=== PATIENT | female | born 1960 ===

== ENCOUNTER 2017-11-24 09:21 | Inpatient (IN) | payer MEDICAID ==
[~2017-11-24] VITALS: Ht 154.9 cm; Wt 76.7 kg
--- NOTE | 2017-11-24 09:35 | PHYS DOC ---
Adult General [facility] HPI Patient is a very pleasant 56-year-old female who presents for evaluation of left-sided chest pain as well as some dizziness and a headache over the last 2- 3 days. She reports that she takes medication for hypertension and that her blood pressure has been elevated at home. She says she takes lisinopril and also simvastatin. She moved here from [place] about a week ago and has not yet been established with a local primary care physician. She smokes cigarettes and rarely drinks alcohol. She takes aspirin daily normally but has not taken any today. She does mention that the left-sided chest pain is radiating to the back and is worse with deep breaths. She says that earlier today she felt like she was going to pass out which concerned her and prompted her visit to the emergency department today. Her blood pressure upon arrival is noted to be quite high at approximately 205/115. She denies history of cardiac events. She states her mother had a h/o strokes and "heart problems that she was born with" but denies other cardiac problems in her other immediate family. Review of Systems Review of Systems Constitutional: Denies fever or chills [] Eyes: Denies change in visual acuity, redness, or eye pain [] HENT: Denies nasal congestion or sore throat [] Respiratory: Denies cough/hemoptysis [] +sob Cardiovascular: No additional information not addressed in HPI [] +cp GI: Denies abdominal pain, nausea, vomiting, bloody stools or diarrhea [] : Denies dysuria or hematuria [] Musculoskeletal: Denies back pain or joint pain [] Integument: Denies rash or skin lesions [] Neurologic: Denies headache, focal weakness or sensory changes [] [place] near- syncope earlier, +[place] Endocrine: Denies polyuria or polydipsia [] All other systems were reviewed and found to be within normal limits, except as documented in this note. Physical Exam Physical Exam Constitutional: Well developed, well nourished, no acute distress, non-toxic appearance. [] calm, appears slightly anxious HENT: Normocephalic, atraumatic, bilateral external ears normal, oropharynx moist, no oral exudates, nose normal. [] Eyes: PERRLA, EOMI, conjunctiva normal, no discharge. [] Neck: Normal range of motion, no tenderness, supple, no stridor. [] Cardiovascular:Heart rate regular rhythm, no murmur [] Lungs & Thorax: Bilateral breath sounds clear to auscultation [] Abdomen: Bowel sounds normal, soft, no tenderness, no masses, no pulsatile masses. [] Skin: Warm, dry, no erythema, no rash. [] Back: No tenderness, no CVA tenderness. [] Extremities: No tenderness, no cyanosis, no clubbing, ROM intact, no edema. [] Neurologic: Alert and oriented X 3, normal motor function, normal sensory function, no focal deficits noted. [] Psychologic: Affect normal, judgement normal, mood normal. [] EKG EKG Normal sinus rhythm, rate of 68, normal axis, no acute ischemic findings, no STEMI, reviewed and interpreted by myself Radiology/Procedures Radiology/Procedures [address] [address] IMAGING REPORT Signed PATIENT: REMIGIO LOVING ACCOUNT: [id number] : 1960 LOCATION: ER AGE: 56 SEX: F EXAM STATUS: PRE ER ORD. PHYSICIAN: LOBO PANDYA DO REASON: headache, dizzy, near syncope, elevated bp PROCEDURE: CT HEAD WO CONTRAST CT HEAD INDICATION: DIZZINESS, HYPERTENSION, NEAR SYNCOPE COMPARISON: None Available. TECHNIQUE: 5 mm contiguous axial images were obtained from the skull base to the vertex in both bone and soft tissue algorithm. Exposure: One or more of the following individualized dose reduction techniques were utilized for this examination: 1. Automated exposure control 2. Adjustment of the mA and/or kV according to patient size 3. Use of iterative reconstruction technique FINDINGS: No abnormal attenuation within the brain parenchyma. No evidence of acute intracranial hemorrhage. No extra-axial fluid collections. No mass effect or midline shift. Ventricular size is appropriate. Basal cisterns are patent. No fractures identified.Espino-white differentiation is preserved.Globes and orbits are within normal limits. Paranasal sinuses and mastoid air cells are clear. IMPRESSION: No acute intracranial findings. Electronically signed by: Johnathan Oliver MD (11/24/2017 10:14 AM) [id number] DICTATED AND SIGNED BY: JOHNATHAN OLIVER MD DATE: 11/24/17 1008 CC: LOBO PANDYA DO ~ [address] [id number] IMAGING REPORT Signed PATIENT: REMIGIO LOVING ACCOUNT: [id number] : 1960 LOCATION: ER AGE: 56 SEX: F EXAM STATUS: PRE ER ORD. PHYSICIAN: LOBO PANDYA DO REASON: cp PROCEDURE: CHEST AP ONLY EXAM: Chest, single view. HISTORY: Chest pain. COMPARISON: None. FINDINGS: A frontal view of the chest is obtained. There is no infiltrate, pleural effusion or pneumothorax. There is left basilar atelectasis. IMPRESSION: No acute pulmonary finding. Electronically signed by: María Donnelly MD (11/24/2017 10:18 AM) [facility] DICTATED AND SIGNED BY: MARÍA DONNELLY MD DATE: 11/24/17 1016 CC: LOBO PANDYA DO ~ Course & Med Decision Making Course & Med Decision Making Pertinent Labs and Imaging studies reviewed. (See chart for details) @0917 - Pt's BP has decreased after the nitro to approx 158/90. She reports the chest pain is improved slightly but her back is still hurting near the left scapula. She appears to be in no distress. Her family has arrived. @1055 - Reviewed the patient's lab and imaging results with the patient and her family. She has not had a stress test in several years. I'm concerned that her blood pressure may have been elevated for some time now and needs to be controlled better. Recommended and offered admission and the patient agrees with this plan. Dr. Perry accepts the telemetry observation admission. Dragon Disclaimer Dragon Disclaimer This electronic medical record was generated, in whole or in part, using a voice recognition dictation system. Departure Departure: Impression: Primary Impression: Chest pain Additional Impressions: Uncontrolled hypertension Noncompliance with medication regimen Disposition: ADMITTED INPATIENT Admitting Physician: Sejal Perry Condition: STABLE Problem Qualifiers LOBO PANDYA DO Nov 24, 2017 09:35
--- NOTE | 2017-11-24 09:35 | EKG ---
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
[2017-11-24] MEDS ORDERED: NITROGLYCERIN SUBLINGUAL 0.4 MG BOTTLE OF 25. SL ONE (10:10)
[2017-11-24] MEDS ORDERED: ASPIRIN 81 MG TAB.CHEW PO ONE (10:10)
[2017-11-24 10:11] LABS: BASO % 1 % (0-3); EOS # 0.2 x10^3/uL (0.0-0.7); EOS % 3 % (0-3); HEMATOCRIT 41.6 % (36.0-47.0); HEMOGLOBIN 14.2 g/dL (12.0-15.5); LYMPH # 2.7 x10^3/uL (1.0-4.8); LYMPH % 43 % (24-48); MEAN CORPUSCULAR HEMOGLOBIN 32 pg (25-35); MEAN CORPUSCULAR HGB CONC 34 g/dL (31-37); MEAN CORPUSCULAR VOLUME 93 fL (79-100); MONO # 0.3 x10^3/uL (0.0-1.1); MONO % 5 % (0-9); NEUT % 49 % (31-73); PLATELET COUNT 229 x10^3/uL (140-400); RED BLOOD COUNT 4.48 x10^6/uL (3.50-5.40); RED CELL DISTRIBUTION WIDTH 13.7 % (11.5-14.5); WHITE BLOOD COUNT 6.2 x10^3/uL (4.0-11.0)
--- NOTE | 2017-11-24 10:18 | RAD ---
CT HEAD INDICATION: DIZZINESS, HYPERTENSION, NEAR SYNCOPE COMPARISON: None Available. TECHNIQUE: 5 mm contiguous axial images were obtained from the skull base to the vertex in both bone and soft tissue algorithm. Exposure: One or more of the following individualized dose reduction techniques were utilized for this examination: 1. Automated exposure control 2. Adjustment of the mA and/or kV according to patient size 3. Use of iterative reconstruction technique FINDINGS: No abnormal attenuation within the brain parenchyma. No evidence of acute intracranial hemorrhage. No extra-axial fluid collections. No mass effect or midline shift. Ventricular size is appropriate. Basal cisterns are patent. No fractures identified.Espino-white differentiation is preserved.Globes and orbits are within normal limits. Paranasal sinuses and mastoid air cells are clear. IMPRESSION: No acute intracranial findings. Electronically signed by: Johnathan Oliver MD (11/24/2017 10:14 AM) [id number]
--- NOTE | 2017-11-24 10:22 | RAD ---
EXAM: Chest, single view. HISTORY: Chest pain. COMPARISON: None. FINDINGS: A frontal view of the chest is obtained. There is no infiltrate, pleural effusion or pneumothorax. There is left basilar atelectasis. IMPRESSION: No acute pulmonary finding. Electronically signed by: María Dickinson MD (11/24/2017 10:18 AM) [place] [id number]
[2017-11-24 10:24] LABS: MAGNESIUM 2.1 mg/dL (1.8-2.4)
[2017-11-24] MEDS ORDERED: MORPHINE SULFATE 4 MG/ML DISP.SYRIN. IV ONE (10:30)
[2017-11-24 10:34] LABS: ALBUMIN 3.8 g/dL (3.4-5.0); ALBUMIN/GLOBULIN RATIO 1.1 (1.0-1.7); ALK PHOS 108 U/L (46-116); ALT (SGPT) 20 U/L (14-59); ANION GAP 9 (6-14); AST (SGOT) 15 U/L (15-37); BLOOD UREA NITROGEN 10 mg/dL (7-20); BUN/CREATININE RATIO 13 (6-20); CALCIUM 8.9 mg/dL (8.5-10.1); CARBON DIOXIDE 27 mmol/L (21-32); CHLORIDE 107 mmol/L (98-107); CREATININE 0.8 mg/dL (0.6-1.0); GFR 74.2; GLUCOSE 80 mg/dL (70-99); POTASSIUM 3.9 mmol/L (3.5-5.1); SODIUM 143 mmol/L (136-145); TOTAL BILIRUBIN 0.3 mg/dL (0.2-1.0); TOTAL PROTEIN 7.2 g/dL (6.4-8.2)
[2017-11-24 11:07] LABS: BACTERIA,URINE FEW /HPF (0-FEW); BILIRUBIN,URINE NEG (NEG); CLARITY,URINE HAZY; COLOR,URINE YELLOW; GLUCOSE,URINE NEG (NEG); NITRITE,URINE NEG (NEG); SQUAMOUS EPITHELIAL CELL,UR FEW /LPF; UROBILINOGEN,URINE 0.2 mg/dL (0.2 mg/dL); WBC,URINE OCC /HPF (0-4)
[2017-11-24 12:07] VITALS: BP 170/77
[2017-11-24] MEDS ORDERED: LISI10TA2 PO (13:53)
[2017-11-24] MEDS ORDERED: LISINOPRIL 10 MG TABLET PO PRN (14:30)
[2017-11-24 15:19] VITALS: BP 129/85
--- NOTE | 2017-11-24 15:32 | HP ---
ADMIT DATE: 11/24/2017 HISTORY OF PRESENT ILLNESS: The patient is a 56-year-old female patient who came to the Emergency Room, complaining of left-sided chest pain as well as some dizziness and headache over the last 2-3 days. She apparently takes her blood pressure medication as needed. She is only on 5 mg of lisinopril and she is not really compliant and does not take her lisinopril and simvastatin on a regular basis. She moved here about from [place] about a week ago and has not yet established with a local primary care physician. She smokes cigarettes and rarely drinks alcohol. She takes aspirin daily normally, but she has not taken any. She has had recurrent episodes of left-sided chest pain that is radiating to the back, worse with taking a deep breath. She actually responded to nitroglycerin at the Emergency Room and again, she another episode of the same pain while in the floor and responded to nitroglycerin and was admitted. She was extensively evaluated in the Emergency Room and was admitted with chest pain to rule out myocardial infarction and uncontrolled hypertension, noncompliance with medication. PAST MEDICAL HISTORY: Significant for hypertension, hyperlipidemia, osteoarthritis and degenerative disk disease. PAST SURGICAL HISTORY: Significant for partial hysterectomy, tonsillectomy, esophagogastroduodenoscopy and colonoscopy. ALLERGIES: She has no known drug allergies. MEDICATIONS: She is currently on following medications: She is on lisinopril 10 mg once a day. She is also on simvastatin. FAMILY HISTORY: She has one sister, younger and is known to have SLE. Two brothers, her younger brother is known to have hypertension. Her father at age of 79 because of ruptured cerebral aneurysm. Mother at the age of 42 because of CVA. SOCIAL HISTORY: She is , has 1 son and 2 daughters. She smokes 3 cigarettes a day. Does not drink alcohol or use any recreational drugs. 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 REVIEW OF SYSTEMS: The patient denied any blurring of vision, cataract, glaucoma or macular degeneration. Denied any earache, tinnitus or sensorineural deafness. Denied any nosebleeds, stuffy nose or postnasal drip. Denied any sore throat, sore tongue, toothache, hoarseness of voice or difficulty swallowing. Denied any nausea, vomiting, diarrhea or constipation. Denied any hematemesis, melena or hematochezia. Denied any dysuria, frequency or hematuria. Did complain of left-sided chest pain that radiates to the back. Denied any nausea or vomiting. Denied any diaphoresis, denied any shortness of breath. Denied any cough, phlegm, or hemoptysis. PHYSICAL EXAMINATION: GENERAL: On examining her, she looked well and was clearly in no apparent respiratory distress. On arrival to the Emergency Room, her heart rate was 71, blood pressure was 203/114. Her temperature was 97.4, respiratory rate was 16 and oxygen saturation was 99%. HEAD, EYES, EARS, NOSE, AND THROAT: Showed normocephalic, atraumatic. NECK: Supple. HEART: Showed normal first and second sounds. No gallop, rub or murmur. CHEST: Clear to auscultation. No crepitation or rhonchi. ABDOMEN: Distended, soft, nontender. NEUROLOGIC: She is awake, alert, responding appropriately. Cranial nerves intact. He moves extremities without difficulty. She ambulates without assistance or assistive devices. LABORATORY DATA: While in the Emergency Room, her white cell count was 6200, hemoglobin 14, hematocrit 42, MCV 93 and platelet count 229,000. Her chemistry showed a serum sodium 143, potassium 3.9, chloride 107, bicarbonate 27, anion gap of 9, BUN 10, creatinine 0.8, estimated GFR was 74 mL per minute. Her glucose was 80, calcium was 8.9, magnesium 2.1. Total bilirubin, AST, ALT, alkaline phosphatase were normal. Her first set of cardiac enzymes showed troponin to be less than 0.017. Her total protein was 7.2, albumin was 3.8. D-dimer is 0.27. Urinalysis was unremarkable. Her EKG showed that she was in sinus rhythm at a heart rate of 68 with normal axis, no acute ischemic findings. No ST segment elevation myocardial infarction. ASSESSMENT AND PLAN: The patient was admitted to do 2 more sets of cardiac enzyme, check his lipid profile, echocardiogram and to consult the cardiology team. I had a lengthy discussion with her as well as the nursing staff regarding with the need for compliance with her medication as taking blood pressure every now and then is only not going to be a good practice ____ she will probably end up having a stroke. MARLON CASH MD DR: Shari JOB#: [id number] / [id number]
--- NOTE | 2017-11-24 16:19 | CARD ---
MR#: [id number] Date of Study: 11/24/2017 Ordering Physician: MARLON CASH, Referring Physician: MARLON CASH, Tech: MITA Godoy APPROVED REPORT EXAM: Two-dimensional and M-mode echocardiogram with Doppler and color Doppler. Other Information Quality : AverageHR: 59bpm Technically limited study due to body habitus. INDICATION LV Function:Systolic 2D DIMENSIONS RVDd3.3 (2.9-3.5cm)Left Atrium(2D)3.3 (1.6-4.0cm) IVSd1.2 (0.7-1.1cm)Aortic Root(2D)3.0 (2.0-3.7cm) LVDd3.3 (3.9-5.9cm)LVOT Diameter2.1 (1.8-2.4cm) PWd1.5 (0.7-1.1cm)LVDs2.4 (2.5-4.0cm) FS (%) 28.0 %SV24.8 ml LVEF(%)55.5 (>50%) Aortic Valve AoV Peak Omero.153.9cm/sAoV VTI32.0cm AO Peak GR.9.5mmHgLVOT Peak Omero.92.2cm/s LVOT VTI 21.37cmAO Mean GR.5mmHg LETITIA (VMAX)2.37ry7RUM (VTI)2.24cm2 Mitral Valve MV E Hidqeomy08.0cm/sMV DECEL [id number] MV A Nqdexmgh93.3cm/sE/A Ratio1.0 Pulmonary Valve PV Peak Svfezxnr93.7cm/sPV Peak Grad.3mmHg Tricuspid Valve TR P. Qlwotrdu784tf/sTR Peak Gr.19mmHg LEFT VENTRICLE The left ventricle is normal size. There is mild to moderate concentric left ventricular hypertrophy. The left ventricular systolic function is normal and the ejection fraction is within normal range. 5 5% There is normal LV segmental wall motion. The left ventricular diastolic function and filling is n ormal for age. RIGHT VENTRICLE The right ventricle is normal size. The right ventricular systolic function is normal. ATRIA The left atrium size is normal. The right atrium size is normal. The interatrial septum is intact wit h no evidence for an atrial septal defect or patent foramen ovale as noted on 2-D or Doppler imaging. AORTIC VALVE The aortic valve is thickened but opens well. Doppler and Color Flow revealed no significant aortic r egurgitation. There is no significant aortic valvular stenosis. There is no aortic valvular vegetatio n. MITRAL VALVE The mitral valve is thickened but opens well. There is no evidence of mitral valve prolapse. There is no mitral valve stenosis. Doppler and Color-flow revealed trace mitral regurgitation. TRICUSPID VALVE The tricuspid valve leaflets are thickened , but open well. Doppler and Color Flow revealed trace to mild tricuspid regurgitation. There is no pulmonary hypertension. The PA pressure was estimated at 15 mmHg. There is no tricuspid valve prolapse or vegetation. There is no tricuspid valve stenosis. PULMONIC VALVE The pulmonic valve is not well visualized. Doppler and Color Flow revealed no pulmonic valvular regur gitation. There is no pulmonic valvular stenosis. GREAT VESSELS The aortic root is normal in size. The IVC is normal in size and collapses >50% with inspiration. PERICARDIAL EFFUSION There is no pleural effusion. There is no evidence of significant pericardial effusion. Critical Notification Critical Value: No <Conclusion> The left ventricular systolic function is normal and the ejection fraction is within normal range. 55 % There is normal LV segmental wall motion. The left ventricular diastolic function and filling is normal for age. Signed by : Taiwo Ott, Electronically Approved : 11/24/2017 16:18:09
[2017-11-24 19:10] VITALS: BP 115/66
[2017-11-24 23:00] VITALS: BP 123/77
[2017-11-25 03:00] VITALS: BP 107/73
[2017-11-25 06:00] LABS: CALCIUM 8.7 mg/dL (8.5-10.1); CREATININE 0.7 mg/dL (0.6-1.0); GFR 86.6
[2017-11-25 07:00] VITALS: BP 132/76
[2017-11-25] MEDS ORDERED: LISINOPRIL 10 MG TABLET PO SCH (09:00)
[2017-11-25 09:40] VITALS: BP_SYST 122; BP_SYST 138; BP_SYST 154; BP_DIAS 74; BP_DIAS 76; BP_DIAS 91
--- NOTE | 2017-11-25 10:14 | PDOC2 ---
MOHINIBROOKE Holger KAN 11/25/17 1014: CONSULT Date of Admission DATE: 11/25/17 TIME: 10:06 Reason for Consult: cp Problem List Problems Medical Problems: (1) Chest pain Status: Acute (2) Noncompliance with medication regimen Status: Acute (3) Uncontrolled hypertension Status: Acute History of Present Illness Ms Adame is a 56 year old female who presented to the ED with complaints of chest pain. She reports several days of off and on discomfort that is sharp, stabbing pain starting in her subscapular region and radiating to her left chest. She reports that each episode last 3-4 hours. She denies any exacerbating or relieving factors. Pain is not exertional. She reports currently a mild discomfort in her left subscapular region that she describes as a mild muscle ache. She was noted on admission to have significant blood pressure elevation. She tells me that her pressure is normally well controlled but that she doesn't check it regularly. She complains of some dizziness that she describes as a spinning sensation that occurred suddenly yesterday while sitting on the couch. She denies any change with position change, denies palpitations, weakness, double vision or other stroke like symptoms. She denies lightheadedness or syncope. She denies limitations in her functional capacity and denies any further complaints or symptoms. She does admit to not taking her antihypertensive medications regularly and reports that she feels tired often taking them which she assumed was from her pressure being too low. She is currently up and dressed and requesting to go home. Cardiovascular: HTN, hyperipidemia CENTRAL NERVOUS SYSTEM: Seizure GI: GERD Musculoskeletal: Osteoarthritis Past Surgical History partial hysterectomy, tonsillectomy Family History no premature coronary artery disease but mother had congenital heart disease, sister has lupus, one brother with hypertension. Her mother from CVA and father from cerebral aneurysm. Social History + smoker, no significant ETOH, no illicit drugs Current Medications Current Medications Aspirin (Children'S Aspirin) 324 mg 1X ONCE PO Last administered on 11/24/17at 09:53; Start 11/24/17 at 10:10; Stop 11/24/17 at 10:11; Status DC Nitroglycerin (Nitrostat) 0.4 mg 1X ONCE SL Last administered on 11/24/17at 09: 45; Start 11/24/17 at 10:10; Stop 11/24/17 at 10:11; Status DC Morphine Sulfate (Morphine 4mg Syringe) 4 mg 1X ONCE IV ; Start 11/24/17 at 10: 30; Stop 11/24/17 at 10:31; Status DC Lisinopril (Prinivil) 10 mg DAILY PRN PO HYPERTENSION, SEE COMMENTS; Start at 14:30; Stop 11/25/17 at 07:20; Status DC Lisinopril (Prinivil) 10 mg DAILY PO Last administered on 11/25/17at 09:27; Start 11/25/17 at 09:00 Active Scripts Active Reported Lisinopril 10 Mg Tablet 10 Mg PO PRN PRN Allergies: Coded Allergies: No Known Drug Allergies (Unverified , 11/24/17) Review of System as per HPI General: Alert, Oriented X3, Cooperative, No acute distress HEENT: Atraumatic, EOMI, Mucous membr. moist/pink, Other (No JVD/HJR/Carotid bruits) Lungs: Clear to auscultation, Normal air movement Heart: Regular rate, Normal S1, Normal S2, Other (no gallops, clicks or rubs) Abdomen: Normal bowel sounds, Soft, No tenderness Extremities: No cyanosis, No edema, Normal pulses Neuro: Normal speech, Strength at 5/5 X4 ext Psych/Mental Status: Mental status NL, Mood NL VITALS Vital Signs Date Time Temp Pulse Resp B/P (MAP) Pulse Ox O2 Delivery O2 Flow Rate FiO2 11/25/17 09:40 138/74 (95) 11/25/17 09:27 58 11/25/17 08:00 Room Air 11/25/17 07:00 97.9 20 97 Labs Laboratory Tests Test 11/24/17 09:55 11/24/17 10:43 11/24/17 13:02 11/25/17 05:40 White Blood Count 6.2 x10^3/uL (4.0-11.0) Red Blood Count 4.48 x10^6/uL (3.50-5.40) Hemoglobin 14.2 g/dL (12.0-15.5) Hematocrit 41.6 % (36.0-47.0) Mean Corpuscular Volume 93 fL (79-100) Mean Corpuscular Hemoglobin 32 pg (25-35) Mean Corpuscular Hemoglobin Concent 34 g/dL (31-37) Red Cell Distribution Width 13.7 % (11.5-14.5) Platelet Count 229 x10^3/uL (140-400) Neutrophils (%) (Auto) 49 % (31-73) Lymphocytes (%) (Auto) 43 % (24-48) Monocytes (%) (Auto) 5 % (0-9) Eosinophils (%) (Auto) 3 % (0-3) Basophils (%) (Auto) 1 % (0-3) Neutrophils # (Auto) 3.0 x10^3uL (1.8-7.7) Lymphocytes # (Auto) 2.7 x10^3/uL (1.0-4.8) Monocytes # (Auto) 0.3 x10^3/uL (0.0-1.1) Eosinophils # (Auto) 0.2 x10^3/uL (0.0-0.7) Basophils # (Auto) 0.0 x10^3/uL (0.0-0.2) D-Dimer (Sharonda) 0.25 mg/L (0.00-0.50) Sodium Level 143 mmol/L (136-145) 141 mmol/L (136-145) Potassium Level 3.9 mmol/L (3.5-5.1) 4.0 mmol/L (3.5-5.1) Chloride Level 107 mmol/L (98-107) 109 mmol/L (98-107) Carbon Dioxide Level 27 mmol/L (21-32) 28 mmol/L (21-32) Anion Gap 9 (6-14) 4 (6-14) Blood Urea Nitrogen 10 mg/dL (7-20) 13 mg/dL (7-20) Creatinine 0.8 mg/dL (0.6-1.0) 0.7 mg/dL (0.6-1.0) Estimated GFR (Cockcroft-Gault) 74.2 86.6 BUN/Creatinine Ratio 13 (6-20) Glucose Level 80 mg/dL (70-99) 95 mg/dL (70-99) Calcium Level 8.9 mg/dL (8.5-10.1) 8.7 mg/dL (8.5-10.1) Magnesium Level 2.1 mg/dL (1.8-2.4) Total Bilirubin 0.3 mg/dL (0.2-1.0) Aspartate Amino Transf (AST/SGOT) 15 U/L (15-37) Alanine Aminotransferase (ALT/SGPT) 20 U/L (14-59) Alkaline Phosphatase 108 U/L (46-116) Creatine Kinase 77 U/L (26-192) Creatine Kinase MB (Mass) < 0.5 ng/mL (0.0-3.6) Creatine Kinase MB Relative Index 0.6 % (0-4) Troponin I Quantitative < 0.017 ng/mL (0-0.055) < 0.017 ng/mL (0-0.055) < 0.017 ng/mL (0-0.055) HT-Kia-A-Type Natriuretic Peptide 62 pg/mL (0-124) Total Protein 7.2 g/dL (6.4-8.2) Albumin 3.8 g/dL (3.4-5.0) Albumin/Globulin Ratio 1.1 (1.0-1.7) Urine Collection Type Unknown Urine Color Yellow Urine Clarity Hazy Urine pH 7.0 Urine Specific [place] 1.010 Urine Protein Neg (NEG-TRACE) Urine Glucose (UA) Neg mg/dL (NEG) Urine Ketones (Stick) Neg mg/dL (NEG) Urine Blood Trace (NEG) Urine Nitrite Neg (NEG) Urine Bilirubin Neg (NEG) Urine Urobilinogen Dipstick 0.2 mg/dL (0.2 mg/dL) Urine Leukocyte Esterase Neg (NEG) Urine RBC 3-5 /HPF (0-2) Urine WBC Occ /HPF (0-4) Urine Squamous Epithelial Cells Few /LPF Urine Bacteria Few /HPF (0-FEW) Images EKG - sinus rhythm, no acute abn CXR - IMPRESSION: No acute pulmonary finding. Assessment/Plan 1. Chest pain, KS ruled out, no acute EKG changes. Moderate LVH by echo with normal EF and wall motion. Asa daily. outpatient MPI. 2. uncontrolled hypertension - resume home antihypertensives and take regularly. Avoid sodium, smoking cessation encouraged. 3. dizziness - Check carotid duplex 4. hyperlipidemia - check lipids, resume statin. We did have a long discussion about her LVH and effect of hypertension on the heart as well as other risks related to uncontrolled hypertension. She is encouraged to take medications as prescribed. She is encouraged to avoid sodium , stop smoking. Weight reduction was also encouraged. She is advised to monitor blood pressure regularly and if she has symptoms, call for physician eval prior to stopping medications. Blood pressure is significantly improved on home dose of lisinopril. Would be ok for discharge from CV standpoint with outpatient follow up and testing as noted. OP MPI and OP follow up office scheduled, December 21, 2pm and appointment card provided by nurse. LESLI HOWE MD 11/25/17 1457: CONSULT Assessment/Plan Patient seen and examined. Agree with CHEMICAL LAB SUPERVISOR's assessment and plan. Chest pain with atypical features and most probably musculoskeletal Myocardial infarction been ruled out 2-D echo showed normal LV function without any wall motion abnormalities Blood pressure better controlled since admission Plan for outpatient Lexiscan nuclear stress test to rule out ischemia Thank you for your consultation BROOKE RAJAN APRN Nov 25, 2017 10:14 LESLI HOWE MD Nov 25, 2017 14:57
--- NOTE | 2017-11-25 17:41 | PDOC ---
SUBJECTIVE: I find this pleasant 56-year-old female to be wearing street clothes and sitting up on her bed eager for discharge. She admits to medication noncompliance with her lisinopril and is in agreement that is likely the cause of her recent elevated blood pressures. She denies any dyspnea or chest pain overnight. She did report a very brief period of vertigo following a head rotation which lasted only a few seconds to cardiology and has carotid Doppler study is pending. Her blood pressures have been stable with her home lisinopril dosing. Cardiology has recommended hospital discharge and has scheduled follow- up as an outpatient. OBJECTIVE: Problems: Problems Medical Problems: (1) Chest pain Status: Acute (2) Noncompliance with medication regimen Status: Acute (3) Uncontrolled hypertension Status: Acute Vital Signs: Vital Signs Date Time Temp Pulse Resp B/P (MAP) Pulse Ox O2 Delivery O2 Flow Rate FiO2 11/25/17 09:40 138/74 (95) 11/25/17 09:27 58 11/25/17 08:00 Room Air 11/25/17 07:00 97.9 20 97 I & O Intake and Output 11/25/17 07:00 Intake Total 1920 ml Output Total 2 ml Balance 1918 ml Intake Oral 1920 ml Output Urine Total 2 ml # Voids 2 Labs: Laboratory Tests Test 11/24/17 09:55 11/24/17 10:43 11/24/17 13:02 11/25/17 05:40 White Blood Count 6.2 x10^3/uL (4.0-11.0) Red Blood Count 4.48 x10^6/uL (3.50-5.40) Hemoglobin 14.2 g/dL (12.0-15.5) Hematocrit 41.6 % (36.0-47.0) Mean Corpuscular Volume 93 fL (79-100) Mean Corpuscular Hemoglobin 32 pg (25-35) Mean Corpuscular Hemoglobin Concent 34 g/dL (31-37) Red Cell Distribution Width 13.7 % (11.5-14.5) Platelet Count 229 x10^3/uL (140-400) Neutrophils (%) (Auto) 49 % (31-73) Lymphocytes (%) (Auto) 43 % (24-48) Monocytes (%) (Auto) 5 % (0-9) Eosinophils (%) (Auto) 3 % (0-3) Basophils (%) (Auto) 1 % (0-3) Neutrophils # (Auto) 3.0 x10^3uL (1.8-7.7) Lymphocytes # (Auto) 2.7 x10^3/uL (1.0-4.8) Monocytes # (Auto) 0.3 x10^3/uL (0.0-1.1) Eosinophils # (Auto) 0.2 x10^3/uL (0.0-0.7) Basophils # (Auto) 0.0 x10^3/uL (0.0-0.2) D-Dimer (Sharonda) 0.25 mg/L (0.00-0.50) Sodium Level 143 mmol/L (136-145) 141 mmol/L (136-145) Potassium Level 3.9 mmol/L (3.5-5.1) 4.0 mmol/L (3.5-5.1) Chloride Level 107 mmol/L (98-107) 109 mmol/L (98-107) Carbon Dioxide Level 27 mmol/L (21-32) 28 mmol/L (21-32) Anion Gap 9 (6-14) 4 (6-14) Blood Urea Nitrogen 10 mg/dL (7-20) 13 mg/dL (7-20) Creatinine 0.8 mg/dL (0.6-1.0) 0.7 mg/dL (0.6-1.0) Estimated GFR (Cockcroft-Gault) 74.2 86.6 BUN/Creatinine Ratio 13 (6-20) Glucose Level 80 mg/dL (70-99) 95 mg/dL (70-99) Calcium Level 8.9 mg/dL (8.5-10.1) 8.7 mg/dL (8.5-10.1) Magnesium Level 2.1 mg/dL (1.8-2.4) Total Bilirubin 0.3 mg/dL (0.2-1.0) Aspartate Amino Transf (AST/SGOT) 15 U/L (15-37) Alanine Aminotransferase (ALT/SGPT) 20 U/L (14-59) Alkaline Phosphatase 108 U/L (46-116) Creatine Kinase 77 U/L (26-192) Creatine Kinase MB (Mass) < 0.5 ng/mL (0.0-3.6) Creatine Kinase MB Relative Index 0.6 % (0-4) Troponin I Quantitative < 0.017 ng/mL (0-0.055) < 0.017 ng/mL (0-0.055) < 0.017 ng/mL (0-0.055) UR-Hyd-G-Type Natriuretic Peptide 62 pg/mL (0-124) Total Protein 7.2 g/dL (6.4-8.2) Albumin 3.8 g/dL (3.4-5.0) Albumin/Globulin Ratio 1.1 (1.0-1.7) Urine Collection Type Unknown Urine Color Yellow Urine Clarity Hazy Urine pH 7.0 Urine Specific [place] 1.010 Urine Protein Neg (NEG-TRACE) Urine Glucose (UA) Neg mg/dL (NEG) Urine Ketones (Stick) Neg mg/dL (NEG) Urine Blood Trace (NEG) Urine Nitrite Neg (NEG) Urine Bilirubin Neg (NEG) Urine Urobilinogen Dipstick 0.2 mg/dL (0.2 mg/dL) Urine Leukocyte Esterase Neg (NEG) Urine RBC 3-5 /HPF (0-2) Urine WBC Occ /HPF (0-4) Urine Squamous Epithelial Cells Few /LPF Urine Bacteria Few /HPF (0-FEW) Triglycerides Level 110 mg/dL (0-150) Cholesterol Level 200 mg/dL (0-200) LDL Cholesterol, Calculated 132 mg/dL (0-100) VLDL Cholesterol, Calculated 22 mg/dL (0-40) Non-HDL Cholesterol Calculated 154 mg/dL (0-129) HDL Cholesterol 46 mg/dL (40-60) Cholesterol/HDL Ratio 4.0 Physical Exam: Gen.: Well-dressed well-nourished no apparent distress HEENT: Normocephalic atraumatic, nose and throat clear, mucous membranes are moist Neck: No bruits, Supple without lymphadenopathy or thyromegaly Cardiovascular: Normal S1 and S2 no murmur Pulmonary: No respiratory distress lungs are clear Extremities: No clubbing cyanosis or edema ASSESSMENT: Chest pain resolved Uncontrolled hypertension resolved Medication noncompliance Dizziness PLAN: Prescription for lisinopril given and the patient agrees to take medication as prescribed and follow up with cardiology on December 21 at 2 PM, as scheduled. Due to noncoverage for the procedure the patient refuses carotid Doppler study and will discuss this with cardiology at her follow-up appointment. SASCHA ROLLE DO Nov 25, 2017 5:41 pm
== END 2017-11-25 16:25 | disposition home or self-care (01) | DRG 313 ==
LOC: ER 09:21 → 1 SOUTH 11:50
PROVIDERS: ADMIT Internal Medicine; ATTEND Internal Medicine
DX: R07.89 Other chest pain (principal); E78.5 Hyperlipidemia, unspecified; F17.210 Nicotine dependence, cigarettes, uncomplicated; I10 Essential (primary) hypertension; K21.9 Gastro-esophageal reflux disease without esophagitis; M19.90 Unspecified osteoarthritis, unspecified site; R56.9 Unspecified convulsions; Z79.82 Long term (current) use of aspirin; Z82.3 Family history of stroke; Z82.49 Family history of ischemic heart disease and other diseases of the circulatory system; Z83.2 Family history of diseases of the blood and blood-forming organs and certain disorders involving the immune mechanism; Z90.710 Acquired absence of both cervix and uterus; Z91.14 Patient's other noncompliance with medication regimen; Z90.49 Acquired absence of other specified parts of digestive tract; Z90.711 Acquired absence of uterus with remaining cervical stump; Z71.6 Tobacco abuse counseling
CPT/HCPCS: 36415; 70450; 71045; 80048; 80053; 80061; 81001; 82550; 82553; 83735; 83880; 84484; 85025; 85379; 93005; 93306; 99285-25

== ENCOUNTER 2018-04-07 09:17 | Emergency (ER) | payer MEDICAID, OTHER ==
[~2018-04-07] VITALS: Ht 154.9 cm; Wt 75.7 kg
[~2018-04-07 09:17] MED LIST: LISI10TA2 PO
--- NOTE | 2018-04-07 09:38 | RAD ---
CT CODE STROKE HEAD WO History: Dizzy spell, severe head pain this morning Comparison: November 24, 2017 Technique: Noncontrast CT imaging was performed of the head. Exposure: One or more of the following individualized dose reduction techniques were utilized for this examination: 1. Automated exposure control 2. Adjustment of the mA and/or kV according to patient size 3. Use of iterative reconstruction technique. Findings: No acute extra-axial or parenchymal hemorrhage is identified. There is no significant intra-axial mass effect, midline shift, or extra-axial fluid collection. The cifuentes-white differentiation of the major vascular territories is preserved. The ventricles, sulci, and cisterns are within normal limits in size and configuration. The mastoid air cells and the visualized paranasal sinuses are aerated. No acute calvarial abnormality is identified. Impression: 1. No acute intracranial abnormality is identified. If there is concern for evolving or acute ischemia, followup CT or MRI could be beneficial. Critical result: Findings discussed with MASON DANG at 04/07/2018 9:34 AM. Electronically signed by: Miguelito Castellanos MD (04/07/2018 9:35 AM) [facility]
[2018-04-07] MEDS ORDERED: KETOROLAC 30 MG/ML VIAL. IV ONE (10:00)
[2018-04-07 10:02] LABS: BASO % 1 % (0-3); EOS # 0.1 x10^3/uL (0.0-0.7); EOS % 2 % (0-3); HEMOGLOBIN 14.8 g/dL (12.0-15.5); LYMPH # 2.2 x10^3/uL (1.0-4.8); LYMPH % 34 % (24-48); MEAN CORPUSCULAR HEMOGLOBIN 31 pg (25-35); MEAN CORPUSCULAR HGB CONC 34 g/dL (31-37); MEAN CORPUSCULAR VOLUME 93 fL (79-100); MONO # 0.3 x10^3/uL (0.0-1.1); MONO % 4 % (0-9); NEUT # 3.8 x10^3uL (1.8-7.7); NEUT % 59 % (31-73); PLATELET COUNT 239 x10^3/uL (140-400); RED BLOOD COUNT 4.72 x10^6/uL (3.50-5.40); RED CELL DISTRIBUTION WIDTH 14.2 % (11.5-14.5); WHITE BLOOD COUNT 6.4 x10^3/uL (4.0-11.0)
--- NOTE | 2018-04-07 10:04 | RAD ---
Portable chest, 04/07/2018: HISTORY: Headache, dizziness Comparison is made to a study from 11/24/2017. The heart size and pulmonary vascularity are normal. No pulmonary infiltrate is seen. There is no evidence of pleural fluid. There is a mild thoracic scoliosis with mild scattered marginal spurs. IMPRESSION: No acute cardiopulmonary abnormality is detected. Electronically signed by: Anton Frausto MD (04/07/2018 10:01 AM) [facility]
[2018-04-07 10:14] LABS: ALBUMIN/GLOBULIN RATIO 1.2 (1.0-1.7); CALCIUM 9.2 mg/dL (8.5-10.1); CREATININE 0.8 mg/dL (0.6-1.0); GFR 73.9; POTASSIUM 3.8 mmol/L (3.5-5.1); TOTAL BILIRUBIN 0.4 mg/dL (0.2-1.0); TOTAL PROTEIN 7.4 g/dL (6.4-8.2)
[2018-04-07 11:08] LABS: BILIRUBIN,URINE NEG (NEG); CLARITY,URINE CLEAR; COLOR,URINE YELLOW; GLUCOSE,URINE NEG (NEG); NITRITE,URINE NEG (NEG); RBC,URINE 0 /HPF (0-2); UROBILINOGEN,URINE 0.2 mg/dL (0.2 mg/dL); WBC,URINE 0 /HPF (0-4)
[2018-04-07 11:09] LABS: BACTERIA,URINE 0 /HPF (0-FEW); SQUAMOUS EPITHELIAL CELL,UR OCC /LPF
[2018-04-07] MEDS ORDERED: MECL25TA3 PO ×3 (11:11→11:13)
--- NOTE | 2018-04-07 11:13 | PHYS DOC ---
Past History Past Medical History: CAD, Hypertension Past Surgical History: Hysterectomy Alcohol Use: None Drug Use: None Adult General Chief Complaint Chief Complaint: HEADACHE HPI HPI Patient is a 57 year old female who presents with of headache and dizziness. Patient states she woke up with her usual time around 5 AM and had mild headache. Patient states she was at work at 7 AM and felt sudden onset of shooting pain in her head with dizziness that last about 3 minutes without focal neuro deficit, nausea and vomiting, tinnitus, change of hearing, chest pain, shortness of breath, blurred vision. Patient rated her pain 10 over 10 and states she had another episode of dizziness. Patient denies dizziness at arrival to ER and complaining of headache. She denies history of headache and dizziness and head injury. Review of Systems Review of Systems Constitutional: Denies fever or chills [] Eyes: Denies change in visual acuity, redness, or eye pain [] HENT: Denies nasal congestion or sore throat [] Respiratory: Denies cough or shortness of breath [] Cardiovascular: No additional information not addressed in HPI [] GI: Denies abdominal pain, nausea, vomiting, bloody stools or diarrhea [] : Denies dysuria or hematuria [] Musculoskeletal: Denies back pain or joint pain [] Integument: Denies rash or skin lesions [] Neurologic: Reports headache and dizziness, denies focal weakness or sensory changes [] Endocrine: Denies polyuria or polydipsia [] All other systems were reviewed and found to be within normal limits, except as documented in this note. Current Medications Current Medications Current Medications Medications (Trade) Dose Ordered Sig/[facility] Start Time Stop Time Status Last Admin Dose Admin Ketorolac Tromethamine (Toradol 30mg Vial) 30 mg 1X ONCE 04/07/18 10:00 04/07/18 10:01 DC 04/07/18 10:34 30 MG Allergies Allergies Allergies Coded Allergies Type Severity Reaction Last Updated Verified No Known Drug Allergies 11/24/17 No Physical Exam Physical Exam Constitutional: Well developed, well nourished, mild distress, non-toxic appearance. [] HENT: Normocephalic, atraumatic, bilateral external ears normal, oropharynx moist, no oral exudates, nose normal. [] Eyes: PERRLA, EOMI, conjunctiva normal, no discharge. [] Neck: Normal range of motion, no tenderness, supple, no stridor. [] Cardiovascular:Heart rate regular rhythm, no murmur [] Lungs & Thorax: Bilateral breath sounds clear to auscultation [] Abdomen: Bowel sounds normal, soft, no tenderness, no masses, no pulsatile masses. [] Skin: Warm, dry, no erythema, no rash. [] Back: No tenderness, no CVA tenderness. [] Extremities: No tenderness, no cyanosis, no clubbing, ROM intact, no edema. [] Neurologic: Alert and oriented X 3, normal motor function, normal sensory function, no focal deficits noted, NIH scale of 0. Psychologic: Affect normal, judgement normal, mood normal. [] Current Patient Data Vital Signs Vital Signs Date Time Temp Pulse Resp B/P (MAP) Pulse Ox O2 Delivery O2 Flow Rate FiO2 04/07/18 10:00 98.2 67 99 Room Air 04/07/18 09:58 18 168/84 (112) Lab Results Laboratory Tests Test 04/07/18 09:47 White Blood Count 6.4 x10^3/uL (4.0-11.0) Red Blood Count 4.72 x10^6/uL (3.50-5.40) Hemoglobin 14.8 g/dL (12.0-15.5) Hematocrit 44.0 % (36.0-47.0) Mean Corpuscular Volume 93 fL (79-100) Mean Corpuscular Hemoglobin 31 pg (25-35) Mean Corpuscular Hemoglobin Concent 34 g/dL (31-37) Red Cell Distribution Width 14.2 % (11.5-14.5) Platelet Count 239 x10^3/uL (140-400) Neutrophils (%) (Auto) 59 % (31-73) Lymphocytes (%) (Auto) 34 % (24-48) Monocytes (%) (Auto) 4 % (0-9) Eosinophils (%) (Auto) 2 % (0-3) Basophils (%) (Auto) 1 % (0-3) Neutrophils # (Auto) 3.8 x10^3uL (1.8-7.7) Lymphocytes # (Auto) 2.2 x10^3/uL (1.0-4.8) Monocytes # (Auto) 0.3 x10^3/uL (0.0-1.1) Eosinophils # (Auto) 0.1 x10^3/uL (0.0-0.7) Basophils # (Auto) 0.0 x10^3/uL (0.0-0.2) Prothrombin Time 10.0 SEC (9.4-11.4) Prothrombin Time INR 1.0 (0.9-1.1) Sodium Level 141 mmol/L (136-145) Potassium Level 3.8 mmol/L (3.5-5.1) Chloride Level 104 mmol/L (98-107) Carbon Dioxide Level 28 mmol/L (21-32) Anion Gap 9 (6-14) Blood Urea Nitrogen 17 mg/dL (7-20) Creatinine 0.8 mg/dL (0.6-1.0) Estimated GFR (Cockcroft-Gault) 73.9 BUN/Creatinine Ratio 21 (6-20) H Glucose Level 90 mg/dL (70-99) Calcium Level 9.2 mg/dL (8.5-10.1) Total Bilirubin 0.4 mg/dL (0.2-1.0) Aspartate Amino Transferase (AST) 17 U/L (15-37) Alanine Aminotransferase (ALT) 21 U/L (14-59) Alkaline Phosphatase 98 U/L (46-116) Troponin I Quantitative < 0.017 ng/mL (0-0.055) Total Protein 7.4 g/dL (6.4-8.2) Albumin 4.0 g/dL (3.4-5.0) Albumin/Globulin Ratio 1.2 (1.0-1.7) EKG EKG EKG interpreted by me. EKG at 0943 showed normal sinus rhythm at rate of 69, poor R-wave progress in anteroseptal leads, no acute ST and T-wave abnormalities. Radiology/Procedures Radiology/Procedures [address] [id number] IMAGING REPORT Signed PATIENT: REMIGIO LOVING ACCOUNT: [id number] : 1960 LOCATION: ER AGE: 57 SEX: F EXAM STATUS: REG ER ORD. PHYSICIAN: MASON DANG MD REASON: dizziness and headache PROCEDURE: CHEST AP ONLY Portable chest, 04/07/2018: HISTORY: Headache, dizziness Comparison is made to a study from 11/24/2017. The heart size and pulmonary vascularity are normal. No pulmonary infiltrate is seen. There is no evidence of pleural fluid. There is a mild thoracic scoliosis with mild scattered marginal spurs. IMPRESSION: No acute cardiopulmonary abnormality is detected. Electronically signed by: Anton Frausto MD (04/07/2018 10:01 AM) [facility] DICTATED AND SIGNED BY: ANTON FRAUSTO MD DATE: 04/07/18 1000 CC: MASON DANG MD; PCP,NO ~ [place] [id number] IMAGING REPORT Signed PATIENT: REMIGIO LOVING ACCOUNT: [id number] : 1960 LOCATION: ER AGE: 57 SEX: F EXAM STATUS: REG ER ORD. PHYSICIAN: MASON DANG MD REASON: DIZZINESS PROCEDURE: CT CODE STROKE HEAD WO CT CODE STROKE HEAD WO History: Dizzy spell, severe head pain this morning Comparison: November 24, 2017 Technique: Noncontrast CT imaging was performed of the head. Exposure: One or more of the following individualized dose reduction techniques were utilized for this examination: 1. Automated exposure control 2. Adjustment of the mA and/or kV according to patient size 3. Use of iterative reconstruction technique. Findings: No acute extra-axial or parenchymal hemorrhage is identified. There is no significant intra-axial mass effect, midline shift, or extra-axial fluid collection. The cifuentes-white differentiation of the major vascular territories is preserved. The ventricles, sulci, and cisterns are within normal limits in size and configuration. The mastoid air cells and the visualized paranasal sinuses are aerated. No acute calvarial abnormality is identified. Impression: 1. No acute intracranial abnormality is identified. If there is concern for evolving or acute ischemia, followup CT or MRI could be beneficial. Critical result: Findings discussed with MASON DANG at 04/07/2018 9:34 AM. Electronically signed by: Sascha Castellanos MD (04/07/2018 9:35 AM) [facility] DICTATED AND SIGNED BY: SASCHA CASTELLANOS MD DATE: 04/07/18 0933 CC: MASON DANG MD; PCP,NO ~ Course & Med Decision Making Course & Med Decision Making Pertinent Labs and Imaging studies reviewed. (See chart for details) Evaluation of patient in ER showed 57-year-old male patient with complaining of headache since 5 AM and dizziness intermittently without severe headache. Patient had unremarkable physical exam and NHS scale of 0 with unremarkable labs and CT of head. Patient treated with Toradol and her pain resolved. Patient refuses admission for more evaluation of dizziness and wants to go home. Patient instructed to return to ER if not getting better. Dragon Disclaimer Dragon Disclaimer This electronic medical record was generated, in whole or in part, using a voice recognition dictation system. Departure Departure: Impression: Primary Impression: Dizziness Additional Impressions: Headache Tobacco abuse Tobacco abuse counseling Disposition: HOME, SELF-CARE (at 1109) Condition: IMPROVED Referrals: PCP,CRISTIN (PCP) Patient Instructions: Dizziness, General Headache Without Cause, Smoking Cessation, Tips For Success Additional Instructions: Drink plenty of liquids Follow-up with your primary care physician in 1-2 days Return to ER if not getting better Scripts Meclizine Hcl (MECLIZINE HCL) 25 Mg Tablet 1 TAB PO PRN TID for dizziness, #30 TAB Prov: MASON DANG MD 04/07/18 Problem Qualifiers MASON DANG MD Apr 07, 2018 11:13
[2018-04-07 11:36] VITALS: BP 153/80
== END 2018-04-07 11:30 | disposition home or self-care (01) ==
LOC: ER 09:17
DX: R51 Headache (principal); R42 Dizziness and giddiness; I25.10 Atherosclerotic heart disease of native coronary artery without angina pectoris; I10 Essential (primary) hypertension; Z72.0 Tobacco use; Z71.6 Tobacco abuse counseling
CPT/HCPCS: 36415; 70450; 71045; 80053; 81001; 84484; 85025; 85610; 93005; 96374; 99285; J1885

== ENCOUNTER → 2018-06-07 | Outpatient (CLI) | payer OTHER ==
[~2018-06-07] MED LIST changes: +MECL25TA3 PO
--- NOTE | 2018-06-08 07:42 | RAD ---
EXAM: PA and Lateral Views of the Chest DATE: 06/07/2018 5:03 PM INDICATION: COUGH COMPARISON: 04/07/2018, 06/26/2017 FINDINGS: The heart is not enlarged. Mediastinal and hilar contours are normal. Subtle linear opacities in the left lung base likely subsegmental atelectasis/scarring. Otherwise, focal parenchymal airspace opacity. No pleural effusion or pneumothorax. IMPRESSION: 1. No radiographic evidence for acute cardiopulmonary process. Electronically signed by: Akbar Ascencio MD (06/08/2018 7:38 AM) [facility]
== END | disposition home or self-care (01) ==
LOC: PMG 16:54
PROVIDERS: ATTEND Physician Assistant
DX: M54.6 Pain in thoracic spine (principal); R05 Cough
CPT/HCPCS: 71046

== ENCOUNTER → 2018-06-12 | Outpatient (CLI) | payer OTHER ==
--- NOTE | 2018-06-12 11:33 | RAD ---
EXAM: Carotid Doppler sonogram. HISTORY: Lightheadedness. Stroke. TECHNIQUE: Espino scale and color Doppler sonographic evaluation of the neck with spectral waveform analysis was performed and static images are submitted for review. FINDINGS: There is an old thickening involving the common carotid arteries and carotid bulbs. There is minimal atherosclerotic plaque within the left greater than right carotid bifurcations. The peak systolic velocity within the right common carotid artery is 79 cm/sec. The peak systolic velocity within the right internal carotid artery is 90 cm/sec and the end diastolic velocity within the right internal carotid artery is 33 cm/sec. The peak systolic velocity within the left common carotid artery is 78 cm/sec. The peak systolic velocity within the left internal carotid artery is 129 cm/sec and the end diastolic velocity within the left internal carotid artery is 51 cm/sec. There is normal antegrade flow within both vertebral arteries. IMPRESSION: 1. Mildly elevated peak systolic velocity within the left internal carotid artery, suggesting 50-69% stenosis. 2. No Doppler evidence of hemodynamically significant stenosis involving the right internal carotid artery or vertebral arteries. PQRS Compliance Statement - Stenosis calculations for CT, MR and conventional angiography are based upon measurement of the distal ICA diameter in accordance with the NASCET methodology. Stenosis calculations for carotid ultrasound studies are derived from validated velocity criteria which are known to correlate with the NASCET methodology. Electronically signed by: María Dickinson MD (06/12/2018 11:29 AM) [place] [id number]
== END | disposition home or self-care (01) ==
LOC: US 10:21
PROVIDERS: ATTEND Physician Assistant
DX: I65.22 Occlusion and stenosis of left carotid artery (principal)
CPT/HCPCS: 93880

== ENCOUNTER → 2018-06-16 | Outpatient (CLI) | payer OTHER ==
--- NOTE | 2018-06-16 08:47 | RAD ---
CT of the head without contrast, 06/16/2018: HISTORY: Left-sided face and tongue numbness Comparison is made to a study from 04/07/2018. The ventricles are within normal limits in size. There is no shift of the midline structures. There is no evidence of acute intracranial hemorrhage or mass effect. IMPRESSION: No acute intracranial abnormality is detected with no significant change since 04/07/2018. PQRS Compliance Statement: One or more of the following individualized dose reduction techniques were utilized for this examination: 1. Automated exposure control 2. Adjustment of the mA and/or kV according to patient size 3. Use of iterative reconstruction technique Electronically signed by: Anton Frausto MD (06/16/2018 8:43 AM) [facility]
== END | disposition home or self-care (01) ==
LOC: CT 07:47
PROVIDERS: ATTEND Registered Nurse
DX: R20.8 Other disturbances of skin sensation (principal); Z13.6 Encounter for screening for cardiovascular disorders
CPT/HCPCS: 70450; 80061

== ENCOUNTER 2018-06-27 09:26 | Emergency (ER) | payer OTHER ==
[~2018-06-27] VITALS: Ht 170.2 cm; Wt 72.6 kg
--- NOTE | 2018-06-27 11:10 | RAD ---
Chest radiograph 06/27/2018 10:44 AM INDICATION: Chest pain COMPARISON: November 25, 2018 TECHNIQUE: Frontal and lateral views of the chest are provided. FINDINGS: The cardiomediastinal silhouette is within normal limits. There are no pleural effusions. There is no pulmonary vascular congestion. There is no pneumothorax. The lungs are clear. No significant osseous abnormality is identified. IMPRESSION: No acute cardiopulmonary process. Electronically signed by: Libra White MD (06/27/2018 11:05 AM) [facility]
--- NOTE | 2018-06-27 11:20 | PHYS DOC ---
Past History Past Medical History: CAD, Hypertension Past Surgical History: Hysterectomy Alcohol Use: None Drug Use: None Adult General Chief Complaint Chief Complaint: SHORTNESS OF BREATH HPI HPI Patient is a 57 year old F who presents with shortness of breath only with episodes of pain in her left shoulder. She says that she hurt her left shoulder approximately a week ago and then reinjured it yesterday when lifting a box at work. She feels that she has pain in her chest and shoulder radiating to her neck. She has episodes of pain that "take her breath away". Otherwise she does not have difficulty breathing. She denies cough or congestion. She has no other associated symptoms. She has no other exacerbating or alleviating factors. Review of Systems Review of Systems Constitutional: Denies fever or chills [] Eyes: Denies change in visual acuity, redness, or eye pain [] HENT: Denies nasal congestion or sore throat [] Respiratory: Denies cough Cardiovascular: No additional information not addressed in HPI [] GI: Denies abdominal pain, nausea, vomiting, bloody stools or diarrhea [] : Denies dysuria or hematuria [] Musculoskeletal: Negative except history of present illness Integument: Denies rash or skin lesions [] Neurologic: Denies headache, focal weakness or sensory changes [] Endocrine: Denies polyuria or polydipsia [] All other systems were reviewed and found to be within normal limits, except as documented in this note. Family History Family History No pertinent family medical history was reported Current Medications Current Medications Current medications were reviewed Allergies Allergies Allergies Coded Allergies Type Severity Reaction Last Updated Verified No Known Drug Allergies 11/24/17 No Physical Exam Physical Exam Constitutional: Well developed, well nourished, no acute distress, non-toxic appearance. [] HENT: Normocephalic, atraumatic, bilateral external ears normal, oropharynx moist, no oral exudates, nose normal. [] Eyes: EOMI, conjunctiva normal, no discharge. [] Neck: Normal range of motion, no tenderness, supple, no stridor. [] Cardiovascular:Heart rate regular rhythm, no murmur [] Lungs & Thorax: Bilateral breath sounds clear to auscultation [] Abdomen: Bowel sounds normal, soft, no tenderness, no masses, no pulsatile masses. [] Skin: Warm, dry, no erythema, no rash. [] Back: No tenderness, no CVA tenderness. [] Extremities: no cyanosis, no clubbing, ROM intact, no edema pain with passive range of motion of the L shoulder pain with resistance to motion in the shoulder that reproduces her pain Neurologic: Alert and oriented X 3, normal motor function, normal sensory function, no focal deficits noted. [] Psychologic: Affect normal, judgement normal, mood normal. [] Current Patient Data Vital Signs Normal vital signs. Please review nursing documentation for specifics EKG EKG [] Radiology/Procedures Radiology/Procedures Chest x-ray: No acute disease Course & Med Decision Making Course & Med Decision Making Pertinent Labs and Imaging studies reviewed. (See chart for details) [] Dragon Disclaimer Dragon Disclaimer This electronic medical record was generated, in whole or in part, using a voice recognition dictation system. Departure Departure: Impression: Primary Impression: Left shoulder strain Disposition: HOME, SELF-CARE Condition: STABLE Referrals: CAITLIN BENTLEY (PCP) Patient Instructions: Shoulder Exercises, Generic, SportsMed Additional Instructions: Anna was seen in the emergency department for shortness of breath. No emergency medical condition was found on history and physical exam. Her shortness of breath was associated with pain. She was found to have signs and symptoms consistent with a shoulder strain. She was advised follow-up with her primary care doctor for further management. Problem Qualifiers Primary Impression: Left shoulder strain Encounter type: initial encounter Qualified Codes: S46.912A - Strain of unspecified muscle, fascia and tendon at shoulder and upper arm level, left arm , initial encounter LEAH WEISS MD Jun 27, 2018 11:20
[2018-06-27 11:36] VITALS: BP 145/67
== END 2018-06-27 11:34 | disposition home or self-care (01) ==
LOC: ER 09:26
DX: S46.912A Strain of unspecified muscle, fascia and tendon at shoulder and upper arm level, left arm, initial encounter (principal); R07.89 Other chest pain; I25.10 Atherosclerotic heart disease of native coronary artery without angina pectoris; I10 Essential (primary) hypertension; X50.9XXA Other and unspecified overexertion or strenuous movements or postures, initial encounter; Y93.89 Activity, other specified; Y92.89 Other specified places as the place of occurrence of the external cause; Y99.0 Civilian activity done for income or pay
CPT/HCPCS: 71046; 99283

== ENCOUNTER 2018-10-03 08:36 | Emergency (ER) | payer SELFPAY ==
[~2018-10-03] VITALS: Ht 170.2 cm; Wt 74.2 kg
--- NOTE | 2018-10-03 09:06 | PHYS DOC ---
Past History Past Medical History: CAD, Hypertension Past Surgical History: Hysterectomy Alcohol Use: None Drug Use: None Adult General Chief Complaint Chief Complaint: HEADACHE HPI HPI 57-year-old female presents with headache. The patient has been having intermittent headaches for the last couple of weeks. She states that these were low-level and lasted varying amounts of time. Sometimes she will wake up with them. Sometimes they're with her all day and should follow sleep with them. She presents this morning because she had what or significant headache that started the occipital region and radiates up to the front of her head. She describes this pain as a sharp pain initially but is now throbbing. She has not had a headache like this before. The patient also had some dizziness today which she describes as a lightheaded, off balance feeling. She does not have a long history of headaches. No history of migraines. Patient denies nausea, vomiting, fever, or chills. She has not had any trauma or injuries. She denies alcohol or drug use. She is concerned about a stroke, but denies any other focal symptoms. Review of Systems Review of Systems Constitutional: Denies fever or chills [] Eyes: Denies change in visual acuity, redness, or eye pain [] HENT: Denies nasal congestion or sore throat [] Respiratory: Denies cough or shortness of breath [] Cardiovascular: No additional information not addressed in HPI [] GI: Denies abdominal pain, nausea, vomiting, bloody stools or diarrhea [] : Denies dysuria or hematuria [] Musculoskeletal: Denies back pain or joint pain [] Integument: Denies rash or skin lesions [] Neurologic: Headache. Denies focal weakness or sensory changes [] Endocrine: Denies polyuria or polydipsia [] All other systems were reviewed and found to be within normal limits, except as documented in this note. Allergies Allergies Allergies Coded Allergies Type Severity Reaction Last Updated Verified No Known Drug Allergies 11/24/17 No Physical Exam Physical Exam Constitutional: Well developed, well nourished, no acute distress, non-toxic appearance. [] HENT: Normocephalic, atraumatic, bilateral external ears normal, oropharynx moist, no oral exudates, nose normal. [] Eyes: PERRLA, EOMI, conjunctiva normal, no discharge. [] Neck: Normal range of motion, no tenderness, supple, no stridor. [] Cardiovascular:Heart rate regular rhythm, no murmur [] Lungs & Thorax: Bilateral breath sounds clear to auscultation [] Abdomen: Bowel sounds normal, soft, no tenderness, no masses, no pulsatile masses. [] Skin: Warm, dry, no erythema, no rash. [] Back: No tenderness, no CVA tenderness. [] Extremities: No tenderness, no cyanosis, no clubbing, ROM intact, no edema. [] Neurologic: Alert and oriented X 3, normal motor function, normal sensory function, no focal deficits noted. [] Psychologic: Affect normal, judgement normal, mood normal. [] EKG EKG [] Radiology/Procedures Radiology/Procedures [] Impressions: CT HEAD WO CONTRAST History: Headache, discrepancy in blood pressure of the arms Comparison: None. Technique: Noncontrast CT imaging was performed of the head. Exposure: One or more of the following individualized dose reduction techniques were utilized for this examination: 1. Automated exposure control 2. Adjustment of the mA and/or kV according to patient size 3. Use of iterative reconstruction technique. Findings: No acute intracranial hemorrhage is identified. There is again prominent coronary calcification. There is again probable borderline cerebellar tonsillar ectopia. There is no new midline shift or intra-axial mass effect. Visualized paranasal sinuses and the mastoid air cells are aerated. There is minimal density of the left external auditory canal more likely due to cerumen. Impression: 1. No acute intracranial abnormality is identified. Electronically signed by: Sascha Park MD (10/03/2018 9:30 AM) [id number] DICTATED AND SIGNED BY: SASCHA PARK MD DATE: 10/03/18929 CC: DARIUS IGLESIAS DO; CAITLIN BENTLEY [employer] WORKER-C CHEST PA LATERAL Clinical indications: Cough. Blood pressure difference between the arms. Headache. Findings: Hyperinflation is seen consistent with COPD. No acute lung infiltrate or pleural effusion or pulmonary edema or lung mass or pneumothorax is seen. The heart size, pulmonary vasculature, mediastinum and both nicole are unremarkable. The osseous structures appear intact. Impression: No acute radiographic abnormality is seen. COPD. Electronically signed by: Tami Pineda MD (10/03/2018 9:30 AM) [id number] DICTATED AND SIGNED BY: TMAI PINEDA MD DATE: 10/03/18 0930 CC: DARIUS IGLESIAS DO; CAITLIN BENTLEY Course & Med Decision Making Course & Med Decision Making Pertinent Labs and Imaging studies reviewed. (See chart for details) Patient's head CT is unremarkable. Her chest x-ray is unremarkable. I ordered 1 L normal saline, 10 mg Reglan, 25 mg of Benadryl, and 30 mg of Toradol for her headache. Labs are pending. The patient's labs and urinalysis are unremarkable. The patient is feeling better at this time. I rule out CAD concerning cause for her headaches. Advised if these return she should follow up with her primary care physician. If she has any new or concerning symptoms, she will return to the emergency room. She is stable for discharge at this time. [] Dragon Disclaimer Dragon Disclaimer This electronic medical record was generated, in whole or in part, using a voice recognition dictation system. Departure Departure: Impression: Primary Impression: Headache Disposition: 01 HOME, SELF-CARE Condition: IMPROVED Referrals: CAITLIN BENTLEY (PCP) Patient Instructions: General Headache Without Cause, [id number] Problem Qualifiers Primary Impression: Headache Headache type: unspecified Headache chronicity pattern: acute headache Intractability: intractable Qualified Codes: R51 - Headache DARIUS IGLESIAS DO Oct 03, 2018 09:06
[2018-10-03 09:13] LABS: BASO # 0.1 x10^3/uL (0.0-0.2); BASO % 1 % (0-3); EOS # 0.1 x10^3/uL (0.0-0.7); EOS % 2 % (0-3); HEMATOCRIT 42.7 % (36.0-47.0); HEMOGLOBIN 14.6 g/dL (12.0-15.5); LYMPH # 2.2 x10^3/uL (1.0-4.8); LYMPH % 35 % (24-48); MEAN CORPUSCULAR HEMOGLOBIN 32 pg (25-35); MEAN CORPUSCULAR HGB CONC 34 g/dL (31-37); MEAN CORPUSCULAR VOLUME 93 fL (79-100); MONO # 0.3 x10^3/uL (0.0-1.1); MONO % 5 % (0-9); NEUT # 3.6 x10^3uL (1.8-7.7); NEUT % 57 % (31-73); PLATELET COUNT 215 x10^3/uL (140-400); RED BLOOD COUNT 4.59 x10^6/uL (3.50-5.40); RED CELL DISTRIBUTION WIDTH 13.7 % (11.5-14.5); WHITE BLOOD COUNT 6.3 x10^3/uL (4.0-11.0)
[2018-10-03 09:29] LABS: ALBUMIN 3.7 g/dL (3.4-5.0); CREATININE 0.7 mg/dL (0.6-1.0); GFR 86.2; POTASSIUM 4.4 mmol/L (3.5-5.1); TOTAL BILIRUBIN 0.4 mg/dL (0.2-1.0); TOTAL PROTEIN 7.3 g/dL (6.4-8.2)
--- NOTE | 2018-10-03 09:33 | RAD ---
CHEST PA LATERAL Clinical indications: Cough. Blood pressure difference between the arms. Headache. Findings: Hyperinflation is seen consistent with COPD. No acute lung infiltrate or pleural effusion or pulmonary edema or lung mass or pneumothorax is seen. The heart size, pulmonary vasculature, mediastinum and both nicole are unremarkable. The osseous structures appear intact. Impression: No acute radiographic abnormality is seen. COPD. Electronically signed by: Aaron Pineda MD (10/03/2018 9:30 AM) [id number]
--- NOTE | 2018-10-03 09:33 | RAD ---
CT HEAD WO CONTRAST History: Headache, discrepancy in blood pressure of the arms Comparison: None. Technique: Noncontrast CT imaging was performed of the head. Exposure: One or more of the following individualized dose reduction techniques were utilized for this examination: 1. Automated exposure control 2. Adjustment of the mA and/or kV according to patient size 3. Use of iterative reconstruction technique. Findings: No acute intracranial hemorrhage is identified. There is again prominent coronary calcification. There is again probable borderline cerebellar tonsillar ectopia. There is no new midline shift or intra-axial mass effect. Visualized paranasal sinuses and the mastoid air cells are aerated. There is minimal density of the left external auditory canal more likely due to cerumen. Impression: 1. No acute intracranial abnormality is identified. Electronically signed by: Miguelito Castellanos MD (10/03/2018 9:30 AM) [id number]
[2018-10-03] MEDS ORDERED: KETOROLAC 30 MG/ML VIAL. IV ONE (09:45)
[2018-10-03] MEDS ORDERED: diphenhydrAMINE 50 MG/ML VIAL IVP ONE (09:45)
[2018-10-03] MEDS ORDERED: METOCLOPRAMIDE HCL 10 MG/2 ML VIAL. IV ONE (09:45)
[2018-10-03] MEDS ORDERED: IV NORMAL SALINE 1,000ML 1,000 ML IV ONE (09:45)
[2018-10-03 10:17] LABS: AMPHETAMINE/METHAMPHETAMINE NEG (NEG); BARBITURATES NEG (NEG); BENZODIAZEPINES NEG (NEG); CANNABINOIDS NEG (NEG); COCAINE NEG (NEG); METHADONE NEG (NEG); OPIATES NEG (NEG); PHENCYCLIDINE NEG (NEG)
[2018-10-03 10:22] LABS: BACTERIA,URINE 0 /HPF (0-FEW); BILIRUBIN,URINE NEG (NEG); CLARITY,URINE CLEAR; COLOR,URINE STRAW; GLUCOSE,URINE NEG (NEG); NITRITE,URINE NEG (NEG); SQUAMOUS EPITHELIAL CELL,UR OCC /LPF; UROBILINOGEN,URINE 0.2 mg/dL (0.2 mg/dL); WBC,URINE OCC /HPF (0-4)
[2018-10-03 11:15] VITALS: BP 159/82
== END 2018-10-03 11:15 | disposition home or self-care (01) ==
LOC: ER 08:36
DX: R51 Headache (principal); R42 Dizziness and giddiness; I10 Essential (primary) hypertension; I25.10 Atherosclerotic heart disease of native coronary artery without angina pectoris
CPT/HCPCS: 36415; 70450; 71046; 80053; 80307; 81001; 82947; 85025; 96361; 96374; 96375; 99285; J1200; J1885; J2765; J7030

== ENCOUNTER 2019-10-30 09:22 | Observation (INO) | payer MEDICAID ==
[~2019-10-30] VITALS: Ht 154.9 cm; Wt 76.5 kg
[~2019-10-30 09:22] MED LIST changes: +MECL-75 PO; -MECL25TA3 PO
[2019-10-30] MEDS ORDERED: ASPIRIN 325 MG TABLET PO ONE (09:30)
[2019-10-30] MEDS ORDERED: IV NORMAL SALINE 1,000ML 1,000 ML IV ONE (09:30)
--- NOTE | 2019-10-30 09:53 | PHYS DOC ---
Past History Past Medical History: CAD, CVA, High Cholesterol, Hypertension, ME, TIA Past Surgical History: Hysterectomy Smoking: Cigarettes Alcohol Use: None Drug Use: None General Adult EDM: Chief Complaint: CHEST PAIN HPI: HPI: 58-year-old female with past medical history of prior CAD, hypertension, high c holesterol, family history of cardiac disease, and tobacco abuse presents with report of 1 week history of intermittent left chest pain which became worse this morning. Patient reports she was at work when today's symptoms started. Patient reports she became very dizzy/lightheaded and felt like she was going to pass out. Denies any loss of consciousness. Denies headache. Patient reports she did become diaphoretic. Denies any nausea or vomiting. Denies leg swelling or calf tenderness. Denies history of PE/DVT. Denies cough. Denies fever. Denies known exposure to COVID-19. Patient reports she took a 81 mg aspirin this morning. Review of Systems: Review of Systems: Constitutional: Denies fever or chills Eyes: Denies redness or eye pain HENT: Denies nasal congestion or sore throat Respiratory: Denies cough or shortness of breath Cardiovascular: Reports chest pain; denies palpitations GI: Denies abdominal pain, nausea, or vomiting : Denies dysuria or hematuria Musculoskeletal: Denies back pain or joint pain Integument: Denies rash or skin lesions; reports diaphoresis Neurologic: Denies headache, focal weakness or sensory changes; reports near syncope Complete systems were reviewed and found to be within normal limits, except as documented in this note. Heart Score: HEART Score for Chest Pain: HEART Score for Chest Pain Response (Comments) Value History Moderately Suspicious 1 ECG Normal 0 Age >45 - < 65 1 Risk Factors >3 Risk Factors or Hx CAD 2 Troponin < Normal Limit 0 Total 4 Risk Factors: Risk Factors: DM, Current or recent (<one month) smoker, HTN, HLP, family history of CAD, obesity. Risk Scores: Score 0 - 3: 2.5% MACE over next 6 weeks - Discharge Home Score 4 - 6: 20.3% MACE over next 6 weeks - Admit for Clinical Observation Score 7 - 10: 72.7% MACE over next 6 weeks - Early Invasive Strategies Current Medications: Current Meds: Current Medications Medications (Trade) Dose Ordered Sig/Edy Start Time Stop Time Status Last Admin Dose Admin Aspirin (Haroldo Aspirin) 325 mg 1X ONCE 10/30/19 09:30 10/30/19 09:42 DC Sodium Chloride 1,000 ml @ 1,000 mls/hr 1X ONCE 10/30/19 09:30 10/30/19 10:29 Allergies: Allergies: Allergies Coded Allergies Type Severity Reaction Last Updated Verified No Known Drug Allergies 11/24/17 No Physical Exam: PE: Constitutional: Well developed, well nourished, no acute distress, non-toxic appearance HENT: Normocephalic, atraumatic, oropharynx moist Eyes: Conjunctiva normal, no discharge Neck: Normal range of motion, no tenderness, supple Cardiovascular: Heart rate normal, regular rhythm Lungs & Thorax: Bilateral breath sounds clear to auscultation, no wheezing Abdomen: Soft, no tenderness Skin: Warm, dry, no erythema, no rash Extremities: No tenderness, ROM intact, no edema Neurologic: Alert and oriented X 3, normal motor function, normal sensory functi on, no focal deficits noted Psychologic: Affect normal, judgment normal EKG: EKG: @0925 NSR at 81bpm, NO ST elevation, QRS 72ms, QT/QTc 376/442 Radiology/Procedures: Radiology/Procedures: PROCEDURE: CHEST PA & LATERAL Chest, PA and Lateral: Technique: PA and lateral views of the chest were obtained. History: Chest pain. Comparison: 09/16/2018. Findings: The heart and pulmonary vasculature appear within normal limits. The lungs are clear. The pleural margins are clear. Impression: No acute chest process is seen. Electronically signed by: Johnathan Oliver MD (10/30/2019 11:43 AM) [id number] Course & Med Decision Making: Course & Med Decision Making Pertinent Labs and Imaging studies reviewed. (See chart for details) Patient with significant cardiac risk factors presents with intermittent chest pain that is been ongoing for the past several days. Patient reports worse this morning with sensation of lightheadedness and dizziness. EKG stable. Labs obtained and posted to chart. Initial troponin within normal limits. D-dimer also within normal limits. Chest x-ray stable. Heart score 4. Patient requiring observation admission for further evaluation and treatment. Discussed with Dr. Perry (hospitalist) who is in agreement with admission. Discussed findings and plan with patient, who acknowledges understanding and agreement. Dragon Disclaimer: Dragon Disclaimer: This electronic medical record was generated, in whole or in part, using a voice recognition dictation system. Departure Departure: Impression: Primary Impression: Chest pain Qualified Codes: R07.9 - Chest pain, unspecified Disposition: 09 ADMITTED INPATIENT (obs tele) Admitting Physician: Sejal Perry Condition: STABLE Referrals: CAITLIN BENTLEY (PCP) MARISOL MONTERO DO October 30, 2019 09:53
[2019-10-30] MEDS ORDERED: ASPIRIN CHEWABLE 81 MG TABLET. PO ONE (10:00)
[2019-10-30 10:41] LABS: BASO % 1 % (0-3); EOS # 0.1 x10^3/uL (0.0-0.7); EOS % 2 % (0-3); HEMATOCRIT 40.7 % (36.0-47.0); HEMOGLOBIN 13.7 g/dL (12.0-15.5); LYMPH # 2.3 x10^3/uL (1.0-4.8); LYMPH % 34 % (24-48); MEAN CORPUSCULAR HEMOGLOBIN 32 pg (25-35); MEAN CORPUSCULAR HGB CONC 34 g/dL (31-37); MEAN CORPUSCULAR VOLUME 95 fL (79-100); MONO # 0.3 x10^3/uL (0.0-1.1); MONO % 4 % (0-9); NEUT % 60 % (31-73); PLATELET COUNT 219 x10^3/uL (140-400); RED BLOOD COUNT 4.28 x10^6/uL (3.50-5.40); RED CELL DISTRIBUTION WIDTH 14.3 % (11.5-14.5); WHITE BLOOD COUNT 6.7 x10^3/uL (4.0-11.0)
[2019-10-30 10:48] LABS: ANION GAP 9 (6-14); BLOOD UREA NITROGEN 17 mg/dL (7-20); BUN/CREATININE RATIO 28 (6-20); CALCIUM 8.6 mg/dL (8.5-10.1); CARBON DIOXIDE 28 mmol/L (21-32); CHLORIDE 110 mmol/L (98-107); CREATININE 0.6 mg/dL (0.6-1.0); GFR 102.7; GLUCOSE 109 mg/dL (70-99); POTASSIUM 3.9 mmol/L (3.5-5.1); SODIUM 147 mmol/L (136-145)
[2019-10-30 11:06] LABS: ALBUMIN 3.6 g/dL (3.4-5.0); ALBUMIN/GLOBULIN RATIO 1.3 (1.0-1.7); ALK PHOS 100 U/L (46-116); ALT (SGPT) 15 U/L (14-59); AST (SGOT) 14 U/L (15-37); LIPASE 195 U/L (73-393); TOTAL BILIRUBIN 0.3 mg/dL (0.2-1.0); TOTAL PROTEIN 6.3 g/dL (6.4-8.2)
--- NOTE | 2019-10-30 11:13 | EKG ---
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
--- NOTE | 2019-10-30 11:46 | RAD ---
Chest, PA and Lateral: Technique: PA and lateral views of the chest were obtained. History: Chest pain. Comparison: 09/16/2018. Findings: The heart and pulmonary vasculature appear within normal limits. The lungs are clear. The pleural margins are clear. Impression: No acute chest process is seen. Electronically signed by: Johnathan Oliver MD (10/30/2019 11:43 AM) [id number]
[2019-10-30] MEDS ORDERED: ONDANSETRON PF 4 MG/2 ML VIAL. IVP PRN (12:45)
[2019-10-30 13:56] VITALS: BP 172/97
[2019-10-30] MEDS ORDERED: CLOP75TA57 PO (14:19)
[2019-10-30] MEDS ORDERED: LOSA50TA86 PO (14:19)
[2019-10-30] MEDS ORDERED: ATOR20TA58 PO (14:19)
[2019-10-30] MEDS ORDERED: METO-239 PO (14:19)
[2019-10-30] MEDS: ACETAMINOPHEN 325 MG TABLET PO PRN (14:21)
[2019-10-30 15:50] VITALS: BP 137/80
[2019-10-30] MEDS ORDERED: IOHEXOL 350 MG/ML 100 ML VIAL. IV ONE (16:55)
--- NOTE | 2019-10-30 18:25 | HP ---
ADMIT DATE: 10/30/2019 HISTORY OF PRESENT ILLNESS: The patient is a 58-year-old female patient who presented to the Emergency Room of [facility] complaining of chest pain that started yesterday at 8:30 in the morning and the pain started on the left side posteriorly, which over the next 24 hours became worse and involved the anterior aspect of the left chest. She became extremely dizzy and lightheaded this morning and felt that she is going to pass out; however, she denied any fall or loss of consciousness and she was diaphoretic at that time. The pain is not increased by taking a deep breath or changing position or coughing. The pain comes and goes spontaneously last 20 seconds, she described as sharp, stabbing in nature. She denied any nausea or vomiting. Denied any leg swelling or calf tenderness. She has no history of DVT or PE before. She denied any exposure to COVID-19. She was extensively investigated in the Emergency Room, has had an EKG done, which showed that she was in normal sinus rhythm at 81 beats per minute with no ST elevation. Her QRS complex was 72 milliseconds, corrected QT interval was 442 milliseconds. She has had lab work done, which basically showed that her white cell count was 6700, hemoglobin 13.7, hematocrit 40, MCV 95, and platelet count 219,000 with normal manual differential. Her prothrombin time was 9.9, INR 1, aPTT was 29 and D-dimer was 0.22. Her chemistry showed a serum sodium 147, potassium 3.9, chloride 110, bicarbonate 28, anion gap of 9, BUN 17, creatinine was 0.6, estimated GFR was 102 mL per minute. Her glucose was 119. Calcium was 8.6, magnesium 2. Total bilirubin, AST, ALT, alkaline phosphatase were normal. Her beta natriuretic peptide was 66 and albumin was 3.6. Serum lipase was 195. Troponin was less than 0.017. Her chest x-ray showed the heart and pulmonary vasculature appeared within normal limits. Lungs are clear. The pleural margins are clear. The patient was admitted to do 2 more sets of cardiac enzyme, although her chest pain is definitely very atypical. PAST MEDICAL HISTORY: Significant for coronary artery disease, although no definite myocardial infarction. She was scheduled for cardiac catheterization that was canceled for some reason and did have an echocardiogram done at [facility]. Other medical problems include hypertension, hyperlipidemia, gastroesophageal reflux disease and questionable history of transient ischemic attack. PAST SURGICAL HISTORY: Significant for partial hysterectomy and tonsillectomy. ALLERGIES: She has no known drug allergies. MEDICATIONS: She is currently on following medications: She is on Plavix 75 mg once a day, atorvastatin calcium 20 mg daily, metoprolol succinate 25 mg once a day and losartan potassium 50 mg once a day. FAMILY HISTORY: She has 1 brother, younger who has hypertension, hyperlipidemia, 1 sister has systemic lupus erythematosus. Her other brother at the age of 54 because of myocardial infarction. Her mother at the age of 42 because of cerebrovascular accident. Her father in his 50s because of cerebral hemorrhage. SOCIAL HISTORY: She is , has 2 daughters and 1 son. She smokes 5-6 cigarettes per day. She does not drink alcohol or use any recreational drugs. She works for [employer]. REVIEW OF SYSTEMS: The patient denied any blurring of vision, cataracts, glaucoma or macular degeneration. Denied any earache, tinnitus or sensorineural deafness. Denied any nosebleeds, stuffy nose or postnasal drip. Denied any sore throat, sore tongue, toothache, hoarseness of voice or difficulty swallowing. Denied any nausea, vomiting, diarrhea or constipation. Denied any hematemesis, melena or hematochezia. Denied any dysuria, frequency or hematuria. Did complain of chest pain that was mostly left-sided and that started in the back and now is involving the entire left side of the chest, pain is sharp, stabbing, comes and goes, it is not worsened by taking a deep breath, cough or change in position. She was diaphoretic. PLAN: My plan is to do 2 more sets of cardiac enzyme and check her fasting lipid profile. We will consult Dr. Ott. I will also arrange for her to have a CT angio of the chest to rule out PE, although her D-dimer is low. MARLON CASH MD DR: ALVARO/nena JOB#: [id number] / [id number]
[2019-10-30 19:00] VITALS: BP 128/70
--- NOTE | 2019-10-30 21:31 | RAD ---
PQRS Compliance Statement: One or more of the following individualized dose reduction techniques were utilized for this examination: 1. Automated exposure control 2. Adjustment of the mA and/or kV according to patient size 3. Use of iterative reconstruction technique CT CHEST WITH CONTRAST, PULMONARY ANGIOGRAM History: Shortness of air. Comparison: None. Technique: Helical CT of the chest was performed after the administration of 100 cc of Omnipaque 350 intravenous contrast according to PE protocol. Axial and coronal reconstructions were obtained. 3-D MIP images were constructed to better evaluate the pulmonary arteries. Findings: Pulmonary arteries are adequately opacified. There is no evidence of pulmonary embolism. There is no thoracic aortic dissection. Great vessels are normal caliber. There is no adenopathy in the chest. Cardiac size is normal, no pericardial effusion. The central airways are patent. Small branching linear calcification is seen in the posterior right lower lobe. There is mild atelectasis or scarring in the posterior left lower lobe and inferior lingula. The lungs are otherwise clear. The visualized upper abdomen is unremarkable. Thoracic spine alignment is maintained. IMPRESSION: There is no CT evidence of pulmonary embolus. Electronically signed by: Darin Bazan MD (10/30/2019 9:28 PM) [id number]
[2019-10-30 23:03] VITALS: BP 134/81
[2019-10-31 05:21] VITALS: BP 149/87
[2019-10-31] MEDS ORDERED: TEMA30CA PO (08:31)
[2019-10-31] MEDS: ACETAMINOPHEN 325 MG TABLET PO PRN (08:40)
--- NOTE | 2019-10-31 08:53 | DS ---
DATE OF DISCHARGE: 10/31/2019 ATTENDING PHYSICIAN: Dr. Cash. FINAL DISCHARGE DIAGNOSES: 1. Atypical chest pain, coronary ischemia ruled out. 2. Chronic obstructive pulmonary disease. 3. Essential hypertension. 4. Musculoskeletal tension headache. 5. Hyperlipidemia. 6. Insomnia. HISTORY AND PHYSICAL: This is a 58-year-old female admitted with atypical chest pain, which actually subsided. Her main problems are headaches and hypertension. She was admitted for further treatment, serial enzymes, and evaluation. PHYSICAL EXAMINATION: Please see the dictated note. PERTINENT LABORATORY AND X-RAY STUDIES: Her chest x-ray was clear. CT angiogram showed no evidence of pulmonary embolus. No acute infiltrates identified. Lab work, her hemoglobin was 13.7 g/dL with a white count of 6700. Three sets of cardiac enzymes negative for myocardial necrosis. Creatinine is normal at 0.6 mg percent. Electrolytes within normal range. COURSE IN HOSPITAL: The patient was admitted. Blood pressure was controlled. Home meds were restarted. I reassured her that her cardiac enzymes were negative. She felt better. She wanted to go home. At this time, I believe the problems are insomnia, she is having trouble sleeping, which in turn is causing her blood pressure be high. She stated that she would use Tylenol for headaches, which I think is reasonable. I therefore wrote her a script for Restoril 30 mg 1 at bedtime. No other changes on her home meds. She can continue her Plavix, Lipitor, metoprolol and losartan, dose unchanged. She will follow up with her new PCP. The patient was then discharged from our hospital in stable condition with explicit instructions and followup care. MARLON CASH MD DR: DYLAN/nena JOB#: [id number] / [id number]
[2019-10-31] MEDS ORDERED: METOPROLOL SUCC 24HR ER 25 MG TAB.ER.24H. PO SCH (09:00)
[2019-10-31] MEDS ORDERED: ATORVASTATIN CALCIUM 20 MG TABLET PO SCH (09:00)
[2019-10-31] MEDS ORDERED: LOSARTAN 50 MG TABLET. PO SCH (09:00)
[2019-10-31] MEDS ORDERED: CLOPIDOGREL BISULFATE 75 MG TABLET PO SCH (09:00)
== END 2019-10-31 09:10 | disposition home or self-care (01) ==
LOC: ER 09:22 → 1 SOUTH 13:12
PROVIDERS: ADMIT Internal Medicine; ATTEND Internal Medicine
DX: R07.89 Other chest pain (principal); J44.9 Chronic obstructive pulmonary disease, unspecified; I10 Essential (primary) hypertension; E78.5 Hyperlipidemia, unspecified; G47.00 Insomnia, unspecified; G44.209 Tension-type headache, unspecified, not intractable; I25.10 Atherosclerotic heart disease of native coronary artery without angina pectoris; K21.9 Gastro-esophageal reflux disease without esophagitis; Z79.02 Long term (current) use of antithrombotics/antiplatelets; Z79.899 Other long term (current) drug therapy; Z90.711 Acquired absence of uterus with remaining cervical stump; F17.210 Nicotine dependence, cigarettes, uncomplicated
CPT/HCPCS: 36415; 71046; 71275; 80053; 80061; 82553; 83690; 83735; 83880; 84484; 85025; 85379; 85610; 85730; 93005; 96361; 96374; 99285; 99406; G0378; G0379; J3010; Q9967; J7030

== ENCOUNTER → 2020-09-01 | Outpatient (CLI) | payer MEDICAID ==
[~2020-09-01] MED LIST changes: +ATOR20TA58 PO; +CLOP75TA57 PO; +LISI10TA16 PO; -LISI10TA2 PO; +LOSA50TA86 PO; +METO-239 PO; +TEMA30CA PO
--- NOTE | 2020-09-01 10:34 | RAD ---
Right shoulder 3 views. HISTORY: Chronic right shoulder pain 3 views were taken of the right shoulder. There is not evidence of a fracture or dislocation or osseo us abnormality. There is mild scoliosis. IMPRESSION: 1. No fracture or dislocation or acute osseous abnormality in the right shoulder. Electronically signed by: Macario Garcia MD (09/01/2020 10:32 AM) [id number]
== END ==
LOC: DXRAD 10:15
PROVIDERS: ATTEND Nurse Practitioner Family
DX: M25.511 Pain in right shoulder (principal); G89.29 Other chronic pain
CPT/HCPCS: 73030

== ENCOUNTER → 2020-09-22 | Outpatient (CLI) | payer MEDICAID ==
--- NOTE | 2020-09-22 09:14 | RAD ---
EXAM: Bilateral screening mammogram. HISTORY: 59-year-old female presents for screening mammography. TECHNIQUE: Full-field digital craniocaudal and mediolateral oblique views of both breasts are obtaine d for evaluation. Computer aided detection was applied. COMPARISON: There is no known study within 10 years for comparison. This exam serves as a new baselin e mammogram. BREAST PARENCHYMAL DENSITY: Level B - Scattered fibroglandular densities. FINDINGS: There is no suspicious mass, microcalcification or region of architectural distortion. IMPRESSION: BI-RADS Category 2: Benign finding(s). RECOMMENDATION: Annual mammography is recommended. If your mammogram demonstrates that you have dense breast tissue, which could hide abnormalities, and if you have other risk factors for breast cancer that have been identified, you might benefit from s upplemental screening tests that may be suggested by your ordering physician. Dense breast tissue, i n and of itself, is a relatively common condition. This information is not provided to cause undue c oncern, but rather to raise your awareness and to promote discussion with your physician regarding th e presence of other risk factors, in addition to dense breast tissue. A report of your mammography re sults will be sent to you and your physician. You should contact your physician if you have any ques tions or concerns regarding this report. Mammography is a sensitive method for finding small breast cancers, but it does not detect them all a nd is not a substitute for careful clinical examination. A negative mammogram does not negate a clin ically suspicious finding and should not result in delay in biopsying a clinically suspicious abnorma lity. PQRS compliance statement - Patient information was entered into a reminder system with a target due date for the next mammogram. "Our facility is accredited by the [employer] Mammography Program." Electronically signed by: María Dickinson MD (09/22/2020 9:12 AM) [id number]
== END ==
LOC: MAMMO 08:40
PROVIDERS: ATTEND Family Medicine
DX: Z12.31 Encounter for screening mammogram for malignant neoplasm of breast (principal)
CPT/HCPCS: 77067

== ENCOUNTER 2021-02-02 14:49 | Emergency (ER) | payer MEDICAID ==
[~2021-02-02] VITALS: Ht 154.9 cm; Wt 74.5 kg
--- NOTE | 2021-02-02 15:29 | PHYS DOC ---
Past History Past Medical History: CAD, CVA, High Cholesterol, Hypertension, [place], TIA Past Surgical History: Hysterectomy Smoking: Cigarettes Alcohol Use: None Drug Use: None Adult General Chief Complaint Chief Complaint: DIZZY/LIGHT HEADED HPI HPI Patient is a 60-year-old female who presents for a headache. Onset was approximately 5 days ago without any known trauma, inciting event, mechanism of injury or exposure. Nothing known makes better or worse. Patient describes a dull pain in her posterior occiput. No changes in vision or associated nausea and vomit. Reports she does have a history of hypertension and has elevated blood readings when intermittently checked the last several weeks. Denies any fever, dizziness, chest pain, shortness of breath, nuchal rigidity or stiffness Review of Systems Review of Systems Fourteen body systems of review of systems have been reviewed. See HPI for pertinent positives and negative responses, other rodriguez all other systems are negative, non-pertinent or non-contributory Allergies Allergies Allergies Coded Allergies Type Severity Reaction Last Updated Verified No Known Drug Allergies 11/24/17 No Physical Exam Physical Exam Constitutional: Well developed, well nourished, no acute distress, non-toxic appearance. HENT: Normocephalic, atraumatic, bilateral external ears normal, oropharynx moist, no oral exudates, nose normal. Eyes: PERRLA, EOMI, conjunctiva normal, no discharge. Neck: Normal range of motion, no tenderness, supple, no stridor. No nuchal rigidity, no meningeal signs Cardiovascular: Heart rate regular, sinus rhythm, no murmurs rubs or gallops Lungs & Thorax: Bilateral breath sounds clear to auscultation Abdomen: Bowel sounds normal, soft, no tenderness, no masses, no pulsatile masses. Nonsurgical abdomen, no peritoneal signs Skin: Warm, dry, no erythema, no rash. Back: No tenderness, no CVA tenderness. Extremities: No tenderness, no cyanosis, no clubbing, ROM intact, no edema. Neurologic: Alert and oriented X 3, grossly normal motor & sensory function, no focal deficits noted. Psychologic: Affect normal, judgement normal, mood normal. Current Patient Data Vital Signs Vital Signs Date Time Temp Pulse Resp B/P (MAP) Pulse Ox O2 Delivery O2 Flow Rate FiO2 02/02/21 15:32 98.1 58 18 185/98 97 Room Air Vital Signs Date Time Temp Pulse Resp B/P (MAP) Pulse Ox O2 Delivery O2 Flow Rate FiO2 02/02/21 18:06 61 163/91 (115) 02/02/21 18:00 18 96 Room Air 02/02/21 15:32 98.1 Lab Results Laboratory Tests Test 02/02/21 16:00 02/02/21 16:06 White Blood Count 8.5 x10^3/uL Red Blood Count 4.65 x10^6/uL Hemoglobin 14.6 g/dL Hematocrit 44.2 % Mean Corpuscular Volume 95 fL Mean Corpuscular Hemoglobin 31 pg Mean Corpuscular Hemoglobin Concent 33 g/dL Red Cell Distribution Width 14.3 % Platelet Count 226 x10^3/uL Neutrophils (%) (Auto) 52 % Lymphocytes (%) (Auto) 40 % Monocytes (%) (Auto) 5 % Eosinophils (%) (Auto) 3 % Basophils (%) (Auto) 1 % Neutrophils # (Auto) 4.5 x10^3uL Lymphocytes # (Auto) 3.4 x10^3/uL Monocytes # (Auto) 0.4 x10^3/uL Eosinophils # (Auto) 0.2 x10^3/uL Basophils # (Auto) 0.1 x10^3/uL Sodium Level 144 mmol/L Potassium Level 4.0 mmol/L Chloride Level 110 mmol/L Carbon Dioxide Level 25 mmol/L Anion Gap 9 Blood Urea Nitrogen 17 mg/dL Creatinine 0.7 mg/dL Estimated GFR (Cockcroft-Gault) 85.4 BUN/Creatinine Ratio 24 Glucose Level 93 mg/dL Calcium Level 8.9 mg/dL Total Bilirubin 0.3 mg/dL Aspartate Amino Transf (AST/SGOT) 19 U/L Alanine Aminotransferase (ALT/SGPT) 17 U/L Alkaline Phosphatase 130 U/L Troponin I Quantitative < 0.017 ng/mL LA-Xyc-C-Type Natriuretic Peptide 137 pg/mL Total Protein 7.2 g/dL Albumin 4.1 g/dL Albumin/Globulin Ratio 1.3 Glucose (Fingerstick) 102 mg/dL Current Medications Medications (Trade) Dose Ordered Sig/Edy Route PRN Reason Start Time Stop Time Status Last Admin Dose Admin Nitroglycerin (Nitrostat) 0.4 mg STK-MED ONCE SL 02/02/21 15:42 02/02/21 15:43 DC Nitroglycerin (Nitrostat) 0.4 mg PRN Q5MIN PRN SL CP RATING > 1/10 02/02/21 16:00 02/02/21 18:18 DC 02/02/21 18:04 Acetaminophen (Tylenol) 1,000 mg 1X ONCE PO 02/02/21 16:15 02/02/21 16:29 DC 02/02/21 17:29 Nitroglycerin (Nitrostat) 0.4 mg 1X PRN SL CHEST PAIN 02/02/21 18:15 02/02/21 18:18 DC EKG EKG EKG ordered and interpreted by myself [id number] as sinus rhythm at 63 bpm, unremarkable intervals, no axis deviation, no acute ischemic findings, no STEMI Radiology/Procedures Radiology/Procedures [] Heart Score C/O Chest Pain: No HEART Score for Chest Pain: HEART Score for Chest Pain Response (Comments) Value History Slighlty/Non-Suspicious 0 ECG Normal 0 Age >45 - < 65 1 Risk Factors 1 or 2 Risk Factors 1 Troponin < Normal Limit 0 Total 2 Risk Factors: Risk Factors: DM, Current or recent (<one month) smoker, HTN, HLP, family history of CAD, obesity. Risk Scores: Risk Factors: DM, Current or recent (<one month) smoker, HTN, HLP, family history of CAD, obesity. Course & Med Decision Making Course & Med Decision Making HPI physical examination and comprehensive ER nonconcerning for any emergent or surgical issues Patient absent of any red flag signs or symptoms of concerning intracranial pathology. Patient's 5 days of symptoms likely related to tension versus hypertension related headache. Nitroglycerin administered with improvement of blood pressure and symptoms Patient has good access to PCP and so, I advised her to contact them immediately after ER departure to review ER visit and need for medication changes. Advised he keep a dedicated blood pressure log for review with PCP in outpatient setting. I did disclose potential about further diagnostic work-up such as CT head imaging and/or lumbar puncture but given improvement in symptoms status post reduction of blood pressure, patient deferred which I feel is agreeable. No indication for further diagnostic work-up or intervention in ER setting. Strict return precautions were discussed and verbalized well by patient, all questions and concerns addressed prior to ER departure Dragon Disclaimer Dragon Disclaimer This electronic medical record was generated, in whole or in part, using a voice recognition dictation system. Departure Departure: Impression: Primary Impression: Headache Additional Impression: HTN (hypertension) Disposition: HOME / SELF CARE / HOMELESS Condition: IMPROVED Referrals: PCP,CRISTIN (PCP) Additional Instructions: As discussed prior to ER departure, your presenting symptoms were likely due to a tension type headache and/or uncontrolled hypertension. With that said, I disclosed other potential options such as stroke, brain bleed and meningitis but all seem less likely. Your symptoms improved with improvement of your blood pressure. As such, it will be important for you to keep taking your daily blood pressure medications in addition to keeping a dedicated blood pressure log to review with your primary care physician this week for review. If any concerning signs or symptoms present prior to outpatient follow-up please do not hesitate to come back for repeat evaluation. It was a pleasure to take care of you and I wish you the best going forward Problem Qualifiers BELLA GRANT DO Feb 02, 2021 15:29
[2021-02-02] MEDS ORDERED: NITROGLYCERIN SUBLINGUAL 0.4 MG BOTTLE OF 25. SL ONE (15:42)
[2021-02-02] MEDS: NITROGLYCERIN SUBLINGUAL 0.4 MG BOTTLE OF 25. SL PRN ×2 (16:05→18:04)
[2021-02-02] MEDS ORDERED: ACETAMINOPHEN 500 MG TABLET PO ONE (16:15)
--- NOTE | 2021-02-02 16:23 | EKG ---
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
[2021-02-02 16:28] LABS: BASO # 0.1 x10^3/uL (0.0-0.2); BASO % 1 % (0-3); EOS # 0.2 x10^3/uL (0.0-0.7); EOS % 3 % (0-3); HEMATOCRIT 44.2 % (36.0-47.0); HEMOGLOBIN 14.6 g/dL (12.0-15.5); LYMPH # 3.4 x10^3/uL (1.0-4.8); LYMPH % 40 % (24-48); MEAN CORPUSCULAR HEMOGLOBIN 31 pg (25-35); MEAN CORPUSCULAR HGB CONC 33 g/dL (31-37); MEAN CORPUSCULAR VOLUME 95 fL (79-100); MONO # 0.4 x10^3/uL (0.0-1.1); MONO % 5 % (0-9); NEUT # 4.5 x10^3uL (1.8-7.7); NEUT % 52 % (31-73); PLATELET COUNT 226 x10^3/uL (140-400); RED BLOOD COUNT 4.65 x10^6/uL (3.50-5.40); RED CELL DISTRIBUTION WIDTH 14.3 % (11.5-14.5); WHITE BLOOD COUNT 8.5 x10^3/uL (4.0-11.0)
[2021-02-02 16:42] LABS: CALCIUM 8.9 mg/dL (8.5-10.1); CREATININE 0.7 mg/dL (0.6-1.0); GFR 85.4
[2021-02-02 16:55] LABS: ALBUMIN 4.1 g/dL (3.4-5.0); ALBUMIN/GLOBULIN RATIO 1.3 (1.0-1.7); TOTAL BILIRUBIN 0.3 mg/dL (0.2-1.0); TOTAL PROTEIN 7.2 g/dL (6.4-8.2)
--- NOTE | 2021-02-02 17:53 | EKG ---
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
[2021-02-02 18:06] VITALS: BP 163/91
[2021-02-02] MEDS ORDERED: NITROGLYCERIN SUBLINGUAL 0.4 MG BOTTLE OF 25. SL PRN (18:15)
== END 2021-02-02 18:16 | disposition home or self-care (01) ==
LOC: ER 14:49
DX: I10 Essential (primary) hypertension (principal); R51.9 Headache, unspecified; R11.2 Nausea with vomiting, unspecified; E78.00 Pure hypercholesterolemia, unspecified; I25.2 Old myocardial infarction; I25.10 Atherosclerotic heart disease of native coronary artery without angina pectoris; F17.210 Nicotine dependence, cigarettes, uncomplicated; Z86.73 Personal history of transient ischemic attack (TIA), and cerebral infarction without residual deficits
CPT/HCPCS: 36415; 80053; 82947; 83880; 84484; 85025; 93005; 99284

== ENCOUNTER 2021-05-18 10:47 | Emergency (ER) | payer MEDICAID ==
[~2021-05-18] VITALS: Ht 170.2 cm; Wt 76.0 kg
--- NOTE | 2021-05-18 11:41 | PHYS DOC ---
Past History Past Medical History: CAD, CVA, High Cholesterol, Hypertension, [place], TIA Past Surgical History: Hysterectomy, Tonsillectomy Smoking: Cigarettes Alcohol Use: None Drug Use: None General Adult EDM: Chief Complaint: ABDOMINAL PAIN HPI: HPI: 60-year-old female presents with epigastric abdominal pain pain started after eating 3 days ago. She has had intermittent pain since that time. It is much worse after she eats and calms down but does not go away a few hours later. She currently has epigastric and right upper quadrant cramping pain. She has had n ausea and vomiting. Denies diarrhea, fever, chills. Remote abdominal surgery history of partial hysterectomy. Review of Systems: Review of Systems: Constitutional: Denies fever or chills Eyes: Denies change in visual acuity HENT: Denies nasal congestion or sore throat Respiratory: Denies cough or shortness of breath Cardiovascular: Denies chest pain or edema GI: Epigastric abdominal pain, nausea, vomiting. : Denies dysuria Musculoskeletal: Denies back pain or joint pain Integument: Denies rash Neurologic: Denies headache, focal weakness or sensory changes Endocrine: Denies polyuria or polydipsia Lymphatic: Denies swollen glands Psychiatric: Denies depression or anxiety Allergies: Allergies: Allergies Coded Allergies Type Severity Reaction Last Updated Verified No Known Drug Allergies 02/02/21 No Physical Exam: PE: Constitutional: Well developed, well nourished, no acute distress, non-toxic appearance. [] HENT: Normocephalic, atraumatic, bilateral external ears normal, oropharynx moist, no oral exudates, nose normal. [] Eyes: PERRLA, EOMI, conjunctiva normal, no discharge. [] Neck: Normal range of motion, no tenderness, supple, no stridor. [] Cardiovascular:Heart rate regular rhythm, no murmur [] Lungs & Thorax: Bilateral breath sounds clear to auscultation [] Abdomen: Bowel sounds normal, soft, epigastric tenderness, no masses, no pulsatile masses. [] Skin: Warm, dry, no erythema, no rash. [] Back: No tenderness, no CVA tenderness. [] Extremities: No tenderness, no cyanosis, no clubbing, ROM intact, no edema. [] Neurologic: Alert and oriented X 3, normal motor function, normal sensory function, no focal deficits noted. [] Psychologic: Affect normal, judgement normal, mood normal. [] Current Patient Data: Vital Signs: Vital Signs Date Time Temp Pulse Resp B/P (MAP) Pulse Ox O2 Delivery O2 Flow Rate FiO2 05/18/21 11:23 98.1 68 18 145/77 (99) 99 Room Air EKG: EKG: [] Radiology/Procedures: Radiology/Procedures: [] Impressions: CT ABDOMEN+PELVIS W History: Reason: EPIGASTRIC PAIN, RUQ PAIN - OMNI 300 75 ML / Spl. Instructions: OMNI 300 75ML IV - SLOW INJECT DUE TO IV PLACEMENT / History: Technique: After the administration of intravenous contrast, CT imaging was performed of the abdomen and pelvis. Multiplanar images are reviewed. Exposure: One or more of the following individualized dose reduction techniques were utilized for this examination: 1. Automated exposure control 2. Adjustment of the mA and/or kV according to patient size 3. Use of iterative reconstruction technique. Comparison: None Findings: Lower chest: Mild scattered linear bibasilar atelectasis. Calcified right lower lobe pulmonary nodule, likely prior granulous disease. Abdomen and pelvis: The liver, spleen, adrenal glands, pancreas and gallbladder are unremarkable. No biliary ductal dilatation. Patent portal veins. No renal calculus. No hydronephrosis. Decompressed urinary bladder. Punctate focus of gas within the urinary bladder likely related to instrumentation. Normal appendix. No evidence of bowel obstruction. No pathologic lymphadenopathy. No ascites. Prior hysterectomy. Moderate atheromatous plaque throughout the nonaneurysmal abdominal aorta and branch vessels. Bones: No pathologic osseous lesions. Impression: 1. No acute abdominal or pelvic pathology. 2. Punctate focus of gas within the urinary bladder. Recommend correlate for recent intervention. Electronically signed by: Wen Lee DO (05/18/2021 1:02 PM) [id number] DICTATED AND SIGNED BY: WEN LEE DO DATE: 05/18/21 1256 CC: DARIUS IGLESIAS DO; RUDDY SERRATO MD ~MTH0 0 Heart Score: C/O Chest Pain: N/A Risk Factors: Risk Factors: DM, Current or recent (<one month) smoker, HTN, HLP, family history of CAD, obesity. Risk Scores: Score 0 - 3: 2.5% MACE over next 6 weeks - Discharge Home Score 4 - 6: 20.3% MACE over next 6 weeks - Admit for Clinical Observation Score 7 - 10: 72.7% MACE over next 6 weeks - Early Invasive Strategies Course & Med Decision Making: Course & Med Decision Making Pertinent Labs and Imaging studies reviewed. (See chart for details) The patient's labs are unremarkable. Urinalysis is negative for infection. Her CT of the abdomen and pelvis shows no significant acute findings. This is likely gallbladder pain. I have advised that she monitor this closely and consider HIDA scan as an outpatient. She is stable for discharge at this time. [] Dragon Disclaimer: Dragon Disclaimer: This electronic medical record was generated, in whole or in part, using a voice recognition dictation system. Departure Departure: Impression: Primary Impression: Right upper quadrant pain Disposition: HOME / SELF CARE / HOMELESS Condition: STABLE Referrals: RUDDY SERRATO MD (PCP) Patient Instructions: Abdominal Pain (Nonspecific), HIDA (Hepatobilliary) Scan DARIUS IGLESIAS DO May 18, 2021 11:41
[2021-05-18] MEDS ORDERED: KETOROLAC 30 MG/ML VIAL. IVP ONE (11:45)
[2021-05-18] MEDS ORDERED: IOHEXOL 300 MG/ML 75 ML VIAL. IV ONE (11:45)
[2021-05-18] MEDS ORDERED: IV NORMAL SALINE 1,000ML 1,000 ML IV ONE (11:45)
[2021-05-18 12:17] LABS: BACTERIA,URINE 0 /HPF (0-FEW); BILIRUBIN,URINE NEG (NEG); CLARITY,URINE CLEAR; COLOR,URINE YELLOW; GLUCOSE,URINE NEG (NEG); NITRITE,URINE NEG (NEG); UROBILINOGEN,URINE 0.2 mg/dL (0.2 mg/dL); WBC,URINE 0 /HPF (0-4)
[2021-05-18 12:18] LABS: SQUAMOUS EPITHELIAL CELL,UR MOD /LPF
[2021-05-18 12:23] LABS: BASO % 1 % (0-3); EOS # 0.1 x10^3/uL (0.0-0.7); EOS % 1 % (0-3); HEMATOCRIT 41.7 % (36.0-47.0); HEMOGLOBIN 13.8 g/dL (12.0-15.5); LYMPH # 2.7 x10^3/uL (1.0-4.8); LYMPH % 32 % (24-48); MEAN CORPUSCULAR HEMOGLOBIN 31 pg (25-35); MEAN CORPUSCULAR HGB CONC 33 g/dL (31-37); MEAN CORPUSCULAR VOLUME 95 fL (79-100); MONO # 0.4 x10^3/uL (0.0-1.1); MONO % 4 % (0-9); NEUT # 5.1 x10^3uL (1.8-7.7); NEUT % 61 % (31-73); PLATELET COUNT 200 x10^3/uL (140-400); RED CELL DISTRIBUTION WIDTH 14.1 % (11.5-14.5); WHITE BLOOD COUNT 8.4 x10^3/uL (4.0-11.0)
[2021-05-18 12:38] LABS: CALCIUM 8.8 mg/dL (8.5-10.1); CREATININE 0.7 mg/dL (0.6-1.0); GFR 85.4; POTASSIUM 3.9 mmol/L (3.5-5.1)
[2021-05-18 12:44] LABS: ALBUMIN 3.7 g/dL (3.4-5.0); ALBUMIN/GLOBULIN RATIO 1.2 (1.0-1.7); TOTAL BILIRUBIN 0.4 mg/dL (0.2-1.0); TOTAL PROTEIN 6.9 g/dL (6.4-8.2)
--- NOTE | 2021-05-18 13:04 | RAD ---
CT ABDOMEN+PELVIS W History: Reason: EPIGASTRIC PAIN, RUQ PAIN - OMNI 300 75 ML / Spl. Instructions: OMNI 300 75ML IV - SLOW INJECT DUE TO IV PLACEMENT / History: Technique: After the administration of intravenous contrast, CT imaging was performed of the abdomen and pelvis. Multiplanar images are reviewed. Exposure: One or more of the following individualized dose reduction techniques were utilized for thi s examination: 1. Automated exposure control 2. Adjustment of the mA and/or kV according to patient size 3. Use of iterative reconstruction technique. Comparison: None Findings: Lower chest: Mild scattered linear bibasilar atelectasis. Calcified right lower lobe pulmonary nodule , likely prior granulous disease. Abdomen and pelvis: The liver, spleen, adrenal glands, pancreas and gallbladder are unremarkable. No biliary ductal dilatation. Patent portal veins. No renal calculus. No hydronephrosis. Decompressed ur inary bladder. Punctate focus of gas within the urinary bladder likely related to instrumentation. Normal appendix. No evidence of bowel obstruction. No pathologic lymphadenopathy. No ascites. Prior h ysterectomy. Moderate atheromatous plaque throughout the nonaneurysmal abdominal aorta and branch ves sels. Bones: No pathologic osseous lesions. Impression: 1. No acute abdominal or pelvic pathology. 2. Punctate focus of gas within the urinary bladder. Recommend correlate for recent intervention. Electronically signed by: Parish Encarnacion DO (05/18/2021 1:02 PM) [id number]
[2021-05-18] MEDS ORDERED: PANTOPRAZOLE IV 40 MG VIAL. ONE (13:19)
[2021-05-18] MEDS ORDERED: ONDA4TAB12 PO (13:19)
[2021-05-18] MEDS ORDERED: HYDR-2759 PO (13:19)
[2021-05-18 13:28] VITALS: BP 162/86
[2021-05-18] MEDS ORDERED: PANTOPRAZOLE IV 40 MG VIAL. IVP ONE (13:30)
== END 2021-05-18 13:28 | disposition home or self-care (01) ==
LOC: ER 10:47
DX: R10.12 Left upper quadrant pain (principal); R11.2 Nausea with vomiting, unspecified; I25.10 Atherosclerotic heart disease of native coronary artery without angina pectoris; E78.00 Pure hypercholesterolemia, unspecified; I10 Essential (primary) hypertension; I25.2 Old myocardial infarction; F17.210 Nicotine dependence, cigarettes, uncomplicated; Z86.73 Personal history of transient ischemic attack (TIA), and cerebral infarction without residual deficits; Z90.710 Acquired absence of both cervix and uterus
CPT/HCPCS: 36415; 74177; 80053; 81001; 83690; 85025; 96361; 96374; 96375; 99285; C9113; J1885; J7030; Q9967; 99284